=== PATIENT | male | born 1945 | race Caucasian/White ===

== ENCOUNTER → 2016-08-04 | Outpatient (REF) | payer MEDICARE, OTHER ==
[2016-08-04 12:19] LABS: BASO % 1.5 % (0.0-1.0); EOS # 0.1 K/mm3 (0.0-0.50); EOS % 6.2 % (0.0-3.0); LARGE UNSTAINED CELL % 1.5 % (0.0-4.0); LYMPH # 1.1 K/mm3 (1.5-4.5); LYMPH % 51.8 % (24.0-44.0); MEAN CORPUSCULAR HEMOGLOBIN 31.1 pg (27.0-33.0); MEAN CORPUSCULAR HGB CONC 33.3 g/dl (32.0-36.5); MEAN CORPUSCULAR VOLUME 93.6 fl (80.0-96.0); MONO # 0.1 K/mm3 (0.0-0.8); MONO % 2.7 % (0.0-5.0); NEUTROPHILS # 0.8 K/mm3 (1.8-7.7); NEUTROPHILS % 36.2 % (36.0-66.0); PLATELET COUNT, AUTOMATED 139 k/mm3 (150-450); RED CELL DISTRIBUTION WIDTH 14.1 % (11.5-14.5); WHITE BLOOD COUNT 2.1 K/mm3 (4.0-10.0)
[2016-08-04 12:27] LABS: ALBUMIN 3.7 GM/DL (3.2-5.2); ALBUMIN/GLOBULIN RATIO 1.48 (1.00-1.93); BILIRUBIN,TOTAL 0.5 MG/DL (0.2-1.0); CALCIUM LEVEL 8.1 MG/DL (8.8-10.2); CREATININE FOR GFR 1.42 MG/DL (0.70-1.30); GLOMERULAR FILTRATION RATE 52.2 (>42); MAGNESIUM LEVEL 2.1 MG/DL (1.8-2.4); TOTAL PROTEIN 6.2 GM/DL (6.4-8.2)
== END ==
LOC: M SFHCPLAZ 08:20
PROVIDERS: ATTEND Family Medicine
DX: N18.3 Chronic kidney disease, stage 3 (moderate) (principal); E78.5 Hyperlipidemia, unspecified

== ENCOUNTER → 2016-09-23 | Outpatient (REF) | payer MEDICARE, BC, OTHER | LOC: M SFHCPLAZ 11:44 | PROVIDERS: ATTEND Family Medicine | DX: D23.61 Other benign neoplasm of skin of right upper limb, including shoulder (principal) | CPT/HCPCS: 11100; 88305; G0463 ==

== ENCOUNTER → 2017-01-31 | Outpatient (REF) | payer MEDICARE, OTHER ==
[2017-01-31 13:00] LABS: ALBUMIN 3.8 GM/DL (3.2-5.2); ALBUMIN/GLOBULIN RATIO 1.52 (1.00-1.93); ALKALINE PHOSPHATASE 51 U/L (45-117); ALT/SGPT 26 U/L (12-78); ANION GAP 6 MEQ/L (8-16); AST/SGOT 18 U/L (7-37); BILIRUBIN,TOTAL 0.3 MG/DL (0.2-1.0); BLOOD UREA NITROGEN 15 MG/DL (7-18); CALCIUM LEVEL 8.6 MG/DL (8.8-10.2); CARBON DIOXIDE LEVEL 31 MEQ/L (21-32); CHLORIDE LEVEL 106 MEQ/L (98-107); CHOLESTEROL LEVEL 147 MG/DL (<200); CREATININE FOR GFR 1.24 MG/DL (0.70-1.30); GLOMERULAR FILTRATION RATE > 60.0 (>42); GLUCOSE, FASTING 97 MG/DL (83-110); POTASSIUM SERUM 4.2 MEQ/L (3.5-5.1); SODIUM LEVEL 143 MEQ/L (136-145); TOTAL PROTEIN 6.3 GM/DL (6.4-8.2); TRIGLYCERIDES LEVEL 90 MG/DL (<150)
== END ==
LOC: M SFHCPLAZ 08:11
PROVIDERS: ATTEND Family Medicine
DX: E78.5 Hyperlipidemia, unspecified (principal); R73.01 Impaired fasting glucose; N40.1 Benign prostatic hyperplasia with lower urinary tract symptoms; E55.9 Vitamin D deficiency, unspecified; N18.3 Chronic kidney disease, stage 3 (moderate); Z12.5 Encounter for screening for malignant neoplasm of prostate
CPT/HCPCS: 36415; 80053; 80061; 81001; 82043; 82306; 82550; 83036; 83970; 86140; G0103

== ENCOUNTER 2017-06-08 09:13 | Day surgery (SDC) | payer MEDICARE, BC, OTHER ==
[2017-06-08] MEDS: NS 1,000 ML IV (09:49)
[2017-06-08] MEDS ORDERED: LIDOCAINE 2% INJ 100 MG/5 ML SDV (FOR ANES.) As Ordered (10:06)
[2017-06-08] MEDS ORDERED: PROPOFOL 200 MG/20 ML VIAL As Ordered (10:06)
[2017-06-08] MEDS ORDERED: fentaNYL 100 MCG/2 ML INJECTION (J3010) As Ordered (10:08)
== END 2017-06-08 11:12 | disposition home or self-care (01) ==
LOC: M OPP 09:13
DX: R13.10 Dysphagia, unspecified (principal); R93.8 Abnormal findings on diagnostic imaging of other specified body structures; K29.70 Gastritis, unspecified, without bleeding; K29.80 Duodenitis without bleeding; K22.8 Other specified diseases of esophagus; I12.9 Hypertensive chronic kidney disease with stage 1 through stage 4 chronic kidney disease, or unspecified chronic kidney disease; E78.5 Hyperlipidemia, unspecified; K21.9 Gastro-esophageal reflux disease without esophagitis; R12 Heartburn; D64.9 Anemia, unspecified; C83.10 Mantle cell lymphoma, unspecified site; Z85.6 Personal history of leukemia; M19.90 Unspecified osteoarthritis, unspecified site; L71.9 Rosacea, unspecified; G47.30 Sleep apnea, unspecified; N18.3 Chronic kidney disease, stage 3 (moderate); H40.9 Unspecified glaucoma; N40.1 Benign prostatic hyperplasia with lower urinary tract symptoms; Z87.891 Personal history of nicotine dependence; Z88.0 Allergy status to penicillin; Z79.82 Long term (current) use of aspirin; Z79.899 Other long term (current) drug therapy; Z80.3 Family history of malignant neoplasm of breast; Z80.8 Family history of malignant neoplasm of other organs or systems
CPT/HCPCS: 43239

== ENCOUNTER → 2017-11-28 | Outpatient (REF) | payer MEDICARE, OTHER ==
[2017-11-28 11:08] LABS: HEMATOCRIT 37.3 % (42.0-52.0); HEMOGLOBIN 12.4 g/dl (13.5-17.5); MEAN CORPUSCULAR HEMOGLOBIN 30.6 pg (27.0-33.0); MEAN CORPUSCULAR HGB CONC 33.2 g/dl (32.0-36.5); MEAN CORPUSCULAR VOLUME 92.1 fl (80.0-96.0); PLATELET COUNT, AUTOMATED 189 10^3/uL (150-450); RED BLOOD COUNT 4.05 10^6/uL (4.30-6.10); RED CELL DISTRIBUTION WIDTH 14.4 % (11.5-14.5); WHITE BLOOD COUNT 3.6 10^3/uL (4.0-10.0)
[2017-11-28 11:09] LABS: ADD MANUAL DIFFER YES; DIFF SLIDE NUMBER 191; POSITIVE DIFF POS FLAG
[2017-11-28 11:43] LABS: ALBUMIN 3.8 GM/DL (3.2-5.2); ALKALINE PHOSPHATASE 50 U/L (45-117); ALT/SGPT 23 U/L (12-78); ANION GAP 4 MEQ/L (8-16); AST/SGOT 12 U/L (7-37); BILIRUBIN,TOTAL 0.4 MG/DL (0.2-1.0); BLOOD UREA NITROGEN 15 MG/DL (7-18); C REACTIVE PROTEIN QUANTITATIV < 0.30 MG/DL (0.00-0.30); CALCIUM LEVEL 8.6 MG/DL (8.8-10.2); CARBON DIOXIDE LEVEL 32 MEQ/L (21-32); CHLORIDE LEVEL 106 MEQ/L (98-107); CHOLESTEROL LEVEL 179 MG/DL (<200); CHOLESTEROL RISK RATIO 2.796 (<5); CPK CREATINE PHOSPHOKINASE 64 U/L (39-308); CREATININE FOR GFR 1.29 MG/DL (0.70-1.30); GLOMERULAR FILTRATION RATE 58.1 (>42); GLUCOSE, FASTING 88 MG/DL (70-100); HDL CHOLESTEROL 64 MG/DL (>40); LDL CHOLESTEROL 75 MG/DL (<100); MAGNESIUM LEVEL 2.4 MG/DL (1.8-2.4); NON-HDL-C 115 MG/DL; POTASSIUM SERUM 4.5 MEQ/L (3.5-5.1); PTH INTACT 35.5 PG/ML (18.5-88.0); SODIUM LEVEL 142 MEQ/L (136-145); TOTAL 25(OH) VITAMIN D 39.1 NG/ML (30.0-100.0); TOTAL PROTEIN 6.2 GM/DL (6.4-8.2); TRIGLYCERIDES LEVEL 202 MG/DL (<150)
[2017-11-28 11:44] LABS: ESTIMATED AVERAGE GLUCOSE 123 MG/DL (60-110); HEMOGLOBIN A1c 5.9 %
[2017-11-28 11:49] LABS: ATYPICAL LYMPH 1 % (0-5); BANDS 1 % (< 11); BASOPHILS 2 % (0-4); EOSINOPHILS 7 % (0-5); LYMPHOCYTES 2 % (16-52); MONOCYTES 3 % (0-8); NEUTROPHILS 84 % (35-75)
[2017-11-28 11:50] LABS: PLATELET ESTIMATE NORMAL (NORMAL)
[2017-11-28 13:01] LABS: ALBUMIN/GLOBULIN RATIO 1.58 (1.00-1.93)
[2017-11-28 14:24] LABS: APPEARANCE, URINE CLEAR (CLEAR); BACTERIA, URINE AUTO NEGATIVE (NEGATIVE); BILIRUBIN, URINE AUTO NEGATIVE (NEGATIVE); BLOOD, URINE BLOOD NEGATIVE (NEGATIVE); COLOR, URINE YELLOW (YELLOW); GLUCOSE, URINE (UA) AUTO NEGATIVE (NEGATIVE); KETONE, URINE AUTO NEGATIVE (NEGATIVE); LEUKOCYTE ESTERASE, URINE AUTO NEGATIVE (NEGATIVE); MUCUS, URINE SMALL (NEGATIVE); NITRITE, URINE AUTO NEGATIVE (NEGATIVE); PROTEIN, URINE AUTO NEGATIVE (NEGATIVE); RBC, URINE AUTO 1 /HPF (0-3); SPECIFIC GRAVITY URINE AUTO 1.012 (1.002-1.035); SQUAMOUS EPITHELIAL CELL UR AU 0 /HPF (0-6); UROBILINOGEN, URINE AUTO 0.2 mg/dL (0.0-2.0); WBC, URINE AUTO 1 /HPF (0-3)
[2017-11-28 15:14] LABS: MALB URINE SIEMENS 17.9 MG/L
[2017-11-28 20:35] LABS: MAU/CREAT RATIO 15.2 MCG/MG (0.0-30.0)
[2017-11-29 14:18] LABS: H PYLORI SERUM QUANT IgG ABY 0.16 (0.00-0.79)
[2017-11-29 14:18] LABS: INSULIN LEVEL 11.4 uIU/mL (2.6-24.9)
== END ==
LOC: M SFHCPLAZ 09:10
DX: N18.3 Chronic kidney disease, stage 3 (moderate) (principal); E78.5 Hyperlipidemia, unspecified; E55.9 Vitamin D deficiency, unspecified; R73.01 Impaired fasting glucose
CPT/HCPCS: 82550

== ENCOUNTER → 2018-05-10 | Outpatient (REF) | payer MEDICARE, OTHER ==
[~2018-05-10] MED LIST: ASPI81TA85 PO; MOTR200T44 PO; MULT1TAB10 PO; PANT40TA3 PO; TAMSULOSIN PO; TRAV04OPD OU; TUMS500C PO; TYLE325T5 PO; VENL75CA2 PO; VITA-122 PO; VYTO10TA22 PO
[2018-05-10 09:33] LABS: BASO # 0.1 10^3/uL (0.0-0.2); BASO % 1.8 % (0.0-1.0); EOS # 0.2 10^3/uL (0.0-0.50); EOS % 6.2 % (0.0-3.0); HEMATOCRIT 37.3 % (42.0-52.0); HEMOGLOBIN 12.2 g/dl (13.5-17.5); LYMPH # 0.3 10^3/uL (1.5-4.5); LYMPH % 10.2 % (24.0-44.0); MEAN CORPUSCULAR HGB CONC 32.7 g/dl (32.0-36.5); MEAN CORPUSCULAR VOLUME 91.9 fl (80.0-96.0); MONO # 0.4 10^3/uL (0.0-0.8); MONO % 14.6 % (0.0-5.0); NEUTROPHILS # 1.8 10^3/uL (1.8-7.7); NEUTROPHILS % 66.8 % (36.0-66.0); PLATELET COUNT, AUTOMATED 175 10^3/uL (150-450); RED BLOOD COUNT 4.06 10^6/uL (4.30-6.10); WHITE BLOOD COUNT 2.7 10^3/uL (4.0-10.0)
[2018-05-10 10:10] LABS: ALBUMIN 3.7 GM/DL (3.2-5.2); BILIRUBIN,TOTAL 0.3 MG/DL (0.2-1.0); CALCIUM LEVEL 8.6 MG/DL (8.8-10.2); CREATININE FOR GFR 1.35 MG/DL (0.70-1.30); FREE T4 0.77 NG/DL (0.76-1.46); GLOMERULAR FILTRATION RATE 55.2 (>42); POTASSIUM SERUM 4.4 MEQ/L (3.5-5.1); PROSTATIC SPECIFIC AG MONITOR 2.4 NG/ML (< 4.00); THYROID STIMULATING HORMONE 2.24 uIU/ML (0.358-3.740); TOTAL PROTEIN 6.2 GM/DL (6.4-8.2)
== END ==
LOC: M SFHCPLAZ 08:02
PROVIDERS: ATTEND Family Medicine
DX: C91.40 Hairy cell leukemia not having achieved remission (principal); N18.3 Chronic kidney disease, stage 3 (moderate); E78.5 Hyperlipidemia, unspecified; R73.01 Impaired fasting glucose; N40.1 Benign prostatic hyperplasia with lower urinary tract symptoms

== ENCOUNTER → 2018-10-25 | Outpatient (REF) | payer MEDICARE, OTHER ==
[2018-10-25 13:26] LABS: BASO % 1.3 % (0.0-1.0); EOS # 0.4 10^3/uL (0.0-0.50); EOS % 11.3 % (0.0-3.0); HEMATOCRIT 39.2 % (42.0-52.0); HEMOGLOBIN 13.1 g/dl (13.5-17.5); LYMPH # 0.3 10^3/uL (1.5-4.5); LYMPH % 9.7 % (24.0-44.0); MEAN CORPUSCULAR HEMOGLOBIN 30.9 pg (27.0-33.0); MEAN CORPUSCULAR HGB CONC 33.4 g/dl (32.0-36.5); MEAN CORPUSCULAR VOLUME 92.5 fl (80.0-96.0); MONO # 0.4 10^3/uL (0.0-0.8); MONO % 10.9 % (0.0-5.0); NEUTROPHILS # 2.1 10^3/uL (1.8-7.7); NEUTROPHILS % 66.5 % (36.0-66.0); PLATELET COUNT, AUTOMATED 201 10^3/uL (150-450); RED BLOOD COUNT 4.24 10^6/uL (4.30-6.10); WHITE BLOOD COUNT 3.2 10^3/uL (4.0-10.0)
[2018-10-25 13:29] LABS: BILIRUBIN,TOTAL 0.4 MG/DL (0.2-1.0); CALCIUM LEVEL 9.1 MG/DL (8.8-10.2); CREATININE FOR GFR 1.32 MG/DL (0.70-1.30); GLOMERULAR FILTRATION RATE 56.4 (>42); POTASSIUM SERUM 4.2 MEQ/L (3.5-5.1); TOTAL PROTEIN 6.6 GM/DL (6.4-8.2)
[2018-10-25 13:38] LABS: PTH INTACT 40.7 PG/ML (18.5-88.0); TOTAL 25(OH) VITAMIN D 45.1 NG/ML (30.0-100.0)
[2018-10-25 14:12] LABS: HEMOGLOBIN A1c 5.9 %
== END ==
LOC: M SFHCPLAZ 08:53
PROVIDERS: ATTEND Family Medicine
DX: C83.10 Mantle cell lymphoma, unspecified site (principal); N18.3 Chronic kidney disease, stage 3 (moderate); R73.01 Impaired fasting glucose; E55.9 Vitamin D deficiency, unspecified

== ENCOUNTER → 2019-03-29 | Outpatient (CLI) | payer MEDICARE, OTHER ==
[2019-03-29 10:25] LABS: BASO # 0.1 10^3/uL (0.0-0.2); BASO % 2.1 % (0.0-1.0); EOS # 0.2 10^3/uL (0.0-0.5); EOS % 5.8 % (0.0-3.0); HEMATOCRIT 43.9 % (42.0-52.0); HEMOGLOBIN 13.7 g/dl (13.5-17.5); LYMPH # 0.5 10^3/uL (1.5-5.0); LYMPH % 15.2 % (24.0-44.0); MEAN CORPUSCULAR HEMOGLOBIN 28.7 pg (27.0-33.0); MEAN CORPUSCULAR HGB CONC 31.2 g/dl (32.0-36.5); MONO # 0.4 10^3/uL (0.0-0.8); MONO % 11.6 % (0.0-5.0); NEUTROPHILS # 2.2 10^3/uL (1.5-8.5); NEUTROPHILS % 65.3 % (36.0-66.0); PLATELET COUNT, AUTOMATED 223 10^3/uL (150-450); RED BLOOD COUNT 4.77 10^6/uL (4.30-6.10); WHITE BLOOD COUNT 3.3 10^3/uL (4.0-10.0)
[2019-03-29 10:56] LABS: ALBUMIN 4.2 GM/DL (3.2-5.2); ALT/SGPT 32 U/L (12-78); BILIRUBIN,TOTAL 0.6 MG/DL (0.2-1.0); BLOOD UREA NITROGEN 15 MG/DL (7-18); C REACTIVE PROTEIN QUANTITATIV < 0.30 MG/DL (0.00-0.30); CALCIUM LEVEL 9.2 MG/DL (8.8-10.2); CARBON DIOXIDE LEVEL 29 MEQ/L (21-32); CHLORIDE LEVEL 105 MEQ/L (98-107); CHOLESTEROL LEVEL 166 MG/DL (<200); CHOLESTEROL RISK RATIO 2.634 (<5); CPK CREATINE PHOSPHOKINASE 293 U/L (39-308); CREATININE FOR GFR 1.59 MG/DL (0.70-1.30); GLOMERULAR FILTRATION RATE 45.5 (>42); GLUCOSE, FASTING 99 MG/DL (70-100); HDL CHOLESTEROL 63 MG/DL (>40); LDL CHOLESTEROL 83 MG/DL (<100); NON-HDL-C 103 MG/DL; POTASSIUM SERUM 4.5 MEQ/L (3.5-5.1); SODIUM LEVEL 142 MEQ/L (136-145); TOTAL PROTEIN 6.8 GM/DL (6.4-8.2); TRIGLYCERIDES LEVEL 99 MG/DL (<150)
[2019-03-29 10:57] LABS: HEMOGLOBIN A1c 5.9 %
[2019-03-29 14:07] LABS: APPEARANCE, URINE CLEAR (CLEAR); BACTERIA, URINE AUTO NEGATIVE (NEGATIVE); BILIRUBIN, URINE AUTO NEGATIVE (NEGATIVE); BLOOD, URINE BLOOD NEGATIVE (NEGATIVE); COLOR, URINE YELLOW (YELLOW); GLUCOSE, URINE (UA) AUTO NEGATIVE (NEGATIVE); KETONE, URINE AUTO NEGATIVE (NEGATIVE); LEUKOCYTE ESTERASE, URINE AUTO NEGATIVE (NEGATIVE); NITRITE, URINE AUTO NEGATIVE (NEGATIVE); PROTEIN, URINE AUTO NEGATIVE (NEGATIVE); RBC, URINE AUTO 0 /HPF (0-3); SPECIFIC GRAVITY URINE AUTO 1.006 (1.002-1.035); SQUAMOUS EPITHELIAL CELL UR AU 0 /HPF (0-6); UROBILINOGEN, URINE AUTO 0.2 mg/dL (0.0-2.0); WBC, URINE AUTO 1 /HPF (0-3)
[2019-03-29 14:46] LABS: CREATININE, URINE 78.8 MG/DL; MALB URINE SIEMENS 36.4 MG/L; MAU/CREAT RATIO 46.1 MCG/MG (0.0-30.0)
== END ==
LOC: M PLALAB 07:54
PROVIDERS: ATTEND Family Medicine
DX: C83.10 Mantle cell lymphoma, unspecified site (principal); E78.5 Hyperlipidemia, unspecified; R73.01 Impaired fasting glucose; Z12.5 Encounter for screening for malignant neoplasm of prostate
CPT/HCPCS: 36415; 80053; 80061; 81001; 82043; 82550; 83036; 85025; 86140; G0103

== ENCOUNTER → 2019-08-07 | Outpatient (REF) | payer MEDICARE, OTHER ==
[2019-08-07 10:48] LABS: ALBUMIN 3.7 GM/DL (3.2-5.2); BILIRUBIN,TOTAL 0.5 MG/DL (0.2-1.0); CALCIUM LEVEL 8.4 MG/DL (8.8-10.2); CREATININE FOR GFR 1.3 MG/DL (0.70-1.30); GLOMERULAR FILTRATION RATE 57.3 (>42); POTASSIUM SERUM 4.6 MEQ/L (3.5-5.1); TOTAL PROTEIN 6.2 GM/DL (6.4-8.2)
[2019-08-07 10:51] LABS: PTH INTACT 50.2 PG/ML (18.5-88.0); TOTAL 25(OH) VITAMIN D 49.1 NG/ML (30.0-100.0)
[2019-08-07 11:03] LABS: TOTAL PROTEIN,RANDOM URINE 16.4 MG/DL (0.0-12.0)
[2019-08-07 11:43] LABS: HEMOGLOBIN A1c 5.6 %
== END ==
LOC: M PLALAB 08:32
PROVIDERS: ATTEND Family Medicine
DX: N18.3 Chronic kidney disease, stage 3 (moderate) (principal); R73.01 Impaired fasting glucose; E55.9 Vitamin D deficiency, unspecified

== ENCOUNTER → 2020-02-10 | Outpatient (REF) | payer MEDICARE, OTHER ==
[~2020-02-10] MED LIST changes: -ASPI81TA85 PO; +ASPI81TA86 PO; +PANT40TA29 PO; -PANT40TA3 PO
[2020-02-10 10:42] LABS: BASO # 0.1 10^3/uL (0.0-0.2); BASO % 2.1 % (0.0-1.0); EOS # 0.3 10^3/uL (0.0-0.5); EOS % 8.3 % (0.0-3.0); HEMATOCRIT 41.6 % (42.0-52.0); HEMOGLOBIN 13.4 g/dl (13.5-17.5); LYMPH # 0.8 10^3/uL (1.5-5.0); LYMPH % 21.8 % (24.0-44.0); MEAN CORPUSCULAR HEMOGLOBIN 29.5 pg (27.0-33.0); MEAN CORPUSCULAR HGB CONC 32.2 g/dl (32.0-36.5); MEAN CORPUSCULAR VOLUME 91.4 fl (80.0-96.0); MONO # 0.4 10^3/uL (0.0-0.8); MONO % 9.6 % (0.0-5.0); NEUTROPHILS # 2.2 10^3/uL (1.5-8.5); NEUTROPHILS % 57.9 % (36.0-66.0); PLATELET COUNT, AUTOMATED 227 10^3/uL (150-450); RED BLOOD COUNT 4.55 10^6/uL (4.30-6.10); WHITE BLOOD COUNT 3.9 10^3/uL (4.0-10.0)
[2020-02-10 12:01] LABS: ALBUMIN 3.8 GM/DL (3.2-5.2); BILIRUBIN,TOTAL 0.2 MG/DL (0.2-1.0); CALCIUM LEVEL 8.8 MG/DL (8.8-10.2); CHOLESTEROL RISK RATIO 2.707 (<5); CREATININE FOR GFR 1.42 MG/DL (0.70-1.30); FREE T4 0.67 NG/DL (0.76-1.46); GLOMERULAR FILTRATION RATE 51.7 (>42); POTASSIUM SERUM 4.6 MEQ/L (3.5-5.1); THYROID STIMULATING HORMONE 5.08 uIU/ML (0.358-3.740); TOTAL PROTEIN 6.5 GM/DL (6.4-8.2)
== END ==
LOC: M PLALAB 08:19
PROVIDERS: ATTEND Family Medicine
DX: N18.30 Chronic kidney disease, stage 3 unspecified (principal); G47.61 Periodic limb movement disorder; E78.5 Hyperlipidemia, unspecified; R73.01 Impaired fasting glucose; Z12.5 Encounter for screening for malignant neoplasm of prostate
CPT/HCPCS: 36415; 80053; 80061; 83525; 84439; 84443; 85025; 85046; G0103

== ENCOUNTER → 2020-07-09 | Outpatient (CLI) | payer MEDICARE, OTHER ==
--- NOTE | 2020-07-09 15:23 | REPPI ---
INDICATION: R13.10 ODYNOPHAGIA. COMPARISON: Comparison chest x-ray June 21, 2011. TECHNIQUE: Three views... FINDINGS: The lungs are hyperinflated but clear. Pleural angles are sharp. Heart is not enlarged. There are degenerative changes in the thoracic spine. Pulmonary vasculature is not increased. There is no significant bony abnormality. IMPRESSION: No active disease. Mild hyperinflation.. <Electronically signed by Nate Cabral > 07/09/20 [id number]
== END ==
LOC: M PLAIMG 14:30 → M PLALAB 14:30
PROVIDERS: ATTEND Family Medicine
DX: M51.34 Other intervertebral disc degeneration, thoracic region (principal); R13.10 Dysphagia, unspecified
CPT/HCPCS: 71046; G0463

== ENCOUNTER → 2020-07-10 | Outpatient (REF) | payer MEDICARE, OTHER ==
[2020-07-10 10:12] LABS: BASO # 0.1 10^3/uL (0.0-0.2); BASO % 2.2 % (0.0-1.0); EOS # 0.3 10^3/uL (0.0-0.5); EOS % 7.3 % (0.0-3.0); HEMOGLOBIN 13.3 g/dl (13.5-17.5); LYMPH # 0.8 10^3/uL (1.5-5.0); LYMPH % 21.4 % (24.0-44.0); MEAN CORPUSCULAR HEMOGLOBIN 29.2 pg (27.0-33.0); MEAN CORPUSCULAR HGB CONC 31.7 g/dl (32.0-36.5); MEAN CORPUSCULAR VOLUME 92.1 fl (80.0-96.0); MONO # 0.4 10^3/uL (0.0-0.8); MONO % 9.7 % (2.0-8.0); NEUTROPHILS # 2.2 10^3/uL (1.5-8.5); NEUTROPHILS % 59.1 % (36.0-66.0); PLATELET COUNT, AUTOMATED 217 10^3/uL (150-450); RED BLOOD COUNT 4.56 10^6/uL (4.30-6.10); WHITE BLOOD COUNT 3.7 10^3/uL (4.0-10.0)
[2020-07-10 10:51] LABS: ALBUMIN 3.9 GM/DL (3.2-5.2); ALT/SGPT 36 U/L (12-78); BILIRUBIN,TOTAL 0.4 MG/DL (0.2-1.0); BLOOD UREA NITROGEN 16 MG/DL (7-18); CALCIUM LEVEL 9.4 MG/DL (8.8-10.2); CARBON DIOXIDE LEVEL 32 MEQ/L (21-32); CHLORIDE LEVEL 104 MEQ/L (98-107); CREATININE FOR GFR 1.22 MG/DL (0.70-1.30); FERRITIN 64 NG/ML (26-388); FREE T4 0.66 NG/DL (0.76-1.46); GLOMERULAR FILTRATION RATE > 60.0 (>42); GLUCOSE, FASTING 102 MG/DL (70-100); POTASSIUM SERUM 4.8 MEQ/L (3.5-5.1); SODIUM LEVEL 139 MEQ/L (136-145); THYROID PEROXIDASE ANTIBODY 433.8 U/ML (<60.0); TOTAL 25(OH) VITAMIN D 40.6 NG/ML (30.0-100.0); TOTAL PROTEIN 6.5 GM/DL (6.4-8.2)
[2020-07-10 11:09] LABS: HEMOGLOBIN A1c 5.7 %
[2020-07-13 18:07] LABS: INSULIN LEVEL 9.1 uIU/mL (2.6-24.9)
== END ==
LOC: M SFHCPLAZ 08:04
PROVIDERS: ATTEND Family Medicine
DX: E78.5 Hyperlipidemia, unspecified (principal); R73.01 Impaired fasting glucose; N18.30 Chronic kidney disease, stage 3 unspecified; C83.10 Mantle cell lymphoma, unspecified site; G47.61 Periodic limb movement disorder
CPT/HCPCS: 36415; 80053; 82306; 82728; 83036; 83525; 83625; 83970; 84439; 84443; 85025; 86376; G0103

== ENCOUNTER → 2020-10-13 | Outpatient (CLI) | payer MEDICARE, BC, OTHER ==
--- NOTE | 2020-10-14 10:31 | REP ---
INDICATION: COUGH. COMPARISON: NONE TECHNIQUE: The procedure was performed under the direct supervision of . The procedure was performed with Polly Samuel from speech pathology present. 5 CC aliquots of thin, nectar, pudding, mixed fruit, soft and solid consistency barium was administered. A barium pill was also administered. 1.7 minutes of fluoroscopy time was utilized for this procedure. FINDINGS: With thin, nectar and mixed fruit consistency barium there is laryngeal penetration. With the barium pill, the pill advanced to the top of the epiglottis and then bounced into the laryngeal opening onto the false cords and then bounced back out into the esophagus. IMPRESSION: None RECOMMENDATION: A detailed report of this examination will be provided by speech pathology. IMPRESSION: With thin, nectar and mixed fruit consistency barium there is laryngeal penetration. With the barium pill, the pill advanced to the top of the epiglottis and then bounced into the laryngeal opening onto the false cords and then bounced back out into the esophagus. A detailed report of this examination will be provided by speech pathology. <Electronically signed by Erik Ly > 10/13/20 [id number] <Electronically signed by Nate Cabral > 10/14/20 1027
== END ==
LOC: M ST 13:39
PROVIDERS: ATTEND Physician Assistant Medical
DX: R05 Cough (principal)

== ENCOUNTER 2020-12-07 10:45 | Outpatient (RCR) | payer MEDICARE, BC, OTHER | END 2020-12-17 | LOC: M ST 10:45 | PROVIDERS: ATTEND Physician Assistant Medical | DX: R13.13 Dysphagia, pharyngeal phase (principal) ==

== ENCOUNTER → 2020-12-10 | Outpatient (CLI) | payer MEDICARE, BC, OTHER ==
[2020-12-10 10:50] LABS: HEMOGLOBIN A1c 6.2 %
[2020-12-10 10:51] LABS: HEMATOCRIT 37.5 % (42.0-52.0); HEMOGLOBIN 11.8 g/dl (13.5-17.5); MEAN CORPUSCULAR HEMOGLOBIN 27.9 pg (27.0-33.0); MEAN CORPUSCULAR HGB CONC 31.5 g/dl (32.0-36.5); MEAN CORPUSCULAR VOLUME 88.7 fl (80.0-96.0); PLATELET COUNT, AUTOMATED 107 10^3/uL (150-450); RED BLOOD COUNT 4.23 10^6/uL (4.30-6.10); WHITE BLOOD COUNT 24.1 10^3/uL (4.0-10.0)
[2020-12-10 11:15] LABS: ALBUMIN 3.6 GM/DL (3.2-5.2); BILIRUBIN,TOTAL 0.3 MG/DL (0.2-1.0); C REACTIVE PROTEIN QUANTITATIV 3.91 MG/DL (0.00-0.30); CALCIUM LEVEL 8.9 MG/DL (8.8-10.2); CHOLESTEROL RISK RATIO 4.562 (<5); CREATININE FOR GFR 1.34 MG/DL (0.70-1.30); FREE T4 0.93 NG/DL (0.76-1.46); GLOMERULAR FILTRATION RATE 55.2 (>42); POTASSIUM SERUM 4.5 MEQ/L (3.5-5.1); THYROID STIMULATING HORMONE 3.87 uIU/ML (0.358-3.740); TOTAL PROTEIN 6.5 GM/DL (6.4-8.2)
[2020-12-10 12:16] LABS: EOSINOPHILS 3 % (0-3); LYMPHOCYTES 13 % (16-44); METAMYELOCYTES 3 % (0-0); MONOCYTES 3 % (0-5); MYELOCYTES 2 % (0-0); NEUTROPHILS 20 % (28-66)
[2020-12-10 12:23] LABS: ATYPICAL LYMPH 1 % (0-5)
[2020-12-10 12:24] LABS: PLATELET ESTIMATE DECREASED (NORMAL)
[2020-12-10 12:25] LABS: ANISOCYTOSIS 1+; POIKILOCYTOSIS 1+
[2020-12-10 12:38] LABS: BLAST CELLS 52 % (0-0)
[2020-12-12 00:07] LABS: INSULIN LEVEL 9.3 uIU/mL (2.6-24.9)
== END ==
LOC: M PLALAB 07:50
PROVIDERS: ATTEND Family Medicine
DX: C83.10 Mantle cell lymphoma, unspecified site (principal); G47.61 Periodic limb movement disorder; R73.01 Impaired fasting glucose; N18.30 Chronic kidney disease, stage 3 unspecified; R13.10 Dysphagia, unspecified

== ENCOUNTER → 2020-12-11 | Outpatient (CLI) | payer MEDICARE, BC, OTHER ==
[2020-12-11 13:08] LABS: HEMATOCRIT 35.8 % (42.0-52.0); HEMOGLOBIN 11.4 g/dl (13.5-17.5); MEAN CORPUSCULAR HEMOGLOBIN 28.1 pg (27.0-33.0); MEAN CORPUSCULAR HGB CONC 31.8 g/dl (32.0-36.5); MEAN CORPUSCULAR VOLUME 88.4 fl (80.0-96.0); PLATELET COUNT, AUTOMATED 101 10^3/uL (150-450); RED BLOOD COUNT 4.05 10^6/uL (4.30-6.10); WHITE BLOOD COUNT 24.8 10^3/uL (4.0-10.0)
[2020-12-11 13:37] LABS: ATYPICAL LYMPH 5 % (0-5); BLAST CELLS 43 % (0-0); EOSINOPHILS 1 % (0-3); LYMPHOCYTES 5 % (16-44); MONOCYTES 30 % (0-5); NEUTROPHILS 15 % (28-66)
[2020-12-11 13:38] LABS: PLATELET ESTIMATE DECREASED (NORMAL)
[2020-12-11 13:39] LABS: HYPOCHROMASIA 1+
[2020-12-11 13:51] LABS: ALBUMIN 3.4 GM/DL (3.2-5.2); BILIRUBIN,TOTAL 0.3 MG/DL (0.2-1.0); C REACTIVE PROTEIN QUANTITATIV 4.03 MG/DL (0.00-0.30); CALCIUM LEVEL 8.9 MG/DL (8.8-10.2); CHOLESTEROL RISK RATIO 4.516 (<5); CREATININE FOR GFR 1.39 MG/DL (0.70-1.30); FREE T4 0.92 NG/DL (0.76-1.46); GLOMERULAR FILTRATION RATE 52.9 (>42); POTASSIUM SERUM 4.4 MEQ/L (3.5-5.1); PTH INTACT 38.4 PG/ML (18.5-88.0); THYROID PEROXIDASE ANTIBODY 497.9 U/ML (<60.0); THYROID STIMULATING HORMONE 4.76 uIU/ML (0.358-3.740); TOTAL 25(OH) VITAMIN D 51.8 NG/ML (30.0-100.0); TOTAL PROTEIN 6.1 GM/DL (6.4-8.2)
[2020-12-11 13:58] LABS: HEMOGLOBIN A1c 6.2 %
[2020-12-14 21:07] LABS: INSULIN LEVEL 18.8 uIU/mL (2.6-24.9)
== END ==
LOC: M PLALAB 09:49
PROVIDERS: ATTEND Family Medicine
DX: C83.10 Mantle cell lymphoma, unspecified site (principal); G47.31 Primary central sleep apnea; R73.01 Impaired fasting glucose; N18.30 Chronic kidney disease, stage 3 unspecified
CPT/HCPCS: 36415; 80053; 80061; 82306; 82550; 82728; 83036; 83525; 83625; 83970; 84439; 84443; 85025; 86140; 86376; G0103

== ENCOUNTER → 2021-02-03 | Outpatient (CLI) | payer MEDICARE, BC, OTHER ==
[~2021-02-03] MED LIST changes: +PROHANCE 279.3MG/ML 5ML VIAL As Ordered ONE
--- NOTE | 2021-02-03 17:40 | REPVR ---
PROCEDURE INFORMATION: Exam: MR Head Without and With Contrast Exam date and time: 02/03/2021 2:47 PM Age: 75 years old Clinical indication: Condition or disease; Other: Mantle cell lymphoma, slurred speech, R/O HOEING ROW BOSS lymp TECHNIQUE: Imaging protocol: MR of the head without and with intravenous contrast. Contrast material: PROHANCE; Contrast volume: 13 ml; Contrast route: INTRAVENOUS (IV); COMPARISON: XA Cookie Swallow Mod.Ba Swallow 10/13/2020 1:43 PM FINDINGS: Brain: Mild nonspecific T2/FLAIR hyperintensities of the periventricular and deep subcortical white matter, most likely secondary to chronic small vessel ischemic change. No intracranial hemorrhage or extra-axial fluid collection. No evidence of mass effect or midline shift. No restricted diffusion to suggest acute infarct. No abnormal intracranial enhancement. Cerebral ventricles: Mild generalized prominence of the ventricles and sulci, likely attributed to parenchymal volume loss. Bones/joints: Unremarkable. Paranasal sinuses: Normal as visualized. No acute sinusitis. Mastoid air cells: No mastoid effusion. Orbital cavity: Unremarkable. Soft tissues: Unremarkable. IMPRESSION: 1. No acute intracranial pathology. No evidence of metastatic disease to the brain. 2. Chronic findings, as above. Electronically signed by: Cash Barger On 02/03/2021 17:40:29 PM
== END ==
LOC: M RAD 13:24
PROVIDERS: ATTEND Internal Medicine Hematology & Oncology
DX: C83.10 Mantle cell lymphoma, unspecified site (principal); C91.41 Hairy cell leukemia, in remission
CPT/HCPCS: 70553; A9576

== ENCOUNTER → 2021-02-19 | Outpatient (CLI) | payer MEDICARE, BC, OTHER ==
[~2021-02-19] MED LIST changes: +ACET-897 PO; +BACTDSTA PO; +CALQ100C PO; +D31000TA2 PO; +ECOT81TA5 PO; +FAMC250T PO; +META0.52 PO; -PROHANCE 279.3MG/ML 5ML VIAL As Ordered ONE; +VITMTA PO
== END ==
LOC: M LABSMTC 11:11
PROVIDERS: ATTEND Anesthesiology
DX: Z01.812 Encounter for preprocedural laboratory examination (principal); Z20.822 Contact with and (suspected) exposure to COVID-19

== ENCOUNTER 2021-02-23 12:51 | Day surgery (SDC) | payer MEDICARE, BC, OTHER ==
[~2021-02-23] VITALS: Ht 180.3 cm; Wt 101.5 kg
[~2021-02-23 12:51] MED LIST changes: +NS 1,000 ML IV ONE
[2021-02-23] MEDS ORDERED: LIDOCAINE 2% 100MG/5ML SDV (FOR ANES.) As Ordered ONE (14:58)
[2021-02-23] MEDS ORDERED: GLYCOPYRROLATE INJ 0.2 MG/ML 2 ML VIAL As Ordered ONE (15:08)
[2021-02-23] MEDS ORDERED: propofoL 200 MG/20 ML VIAL As Ordered ONE ×3 (15:08→15:13)
--- NOTE | 2021-02-23 15:34 | ROOR ---
Patient Name: Barney Bob Procedure Date: 02/23/2021 2:57 PM Date of : 1945 Age: 75 Room: [facility] Gender: Male Note Status: Finalized Procedure: Upper GI endoscopy Indications: Dyspepsia, Suspected esophageal reflux, Chronic cough Providers: Isaiah Cool MD Referring MD: John Abebe MD Requesting Provider: Medicines: Monitored Anesthesia Care Complications: No immediate complications. Procedure: Pre-Anesthesia Assessment: - The heart rate, respiratory rate, oxygen saturations, blood pressure, adequacy of pulmonary ventilation, and response to care were monitored throughout the procedure. The Endoscope was introduced through the mouth, and advanced to the second part of duodenum. The upper GI endoscopy was accomplished without difficulty. The patient tolerated the procedure well. Findings: Mildly severe esophagitis with no bleeding was found at the gastroesophageal junction. Biopsies were taken with a cold forceps for histology. Scattered mild inflammation characterized by erythema and granularity was found in the gastric antrum. Biopsies were taken with a cold forceps for histology. Small Hiatal Hernia. A single 8 mm mucosal nodule was found in the second portion of the duodenum. Biopsies were taken with a cold forceps for histology. Impression: - Mild reflux esophagitis. Biopsied. - Mild scattered antral gastritis. Biopsied. - Small Hiatal Hernia. - 8-10 mm mucosal polyp/nodule found in the second portion of the duodenum. Biopsied. Recommendation: - Despite the lack of "heartburn", I suspect your chronic cough may be related to "silent" acid reflux causing reactive airway/vocal chord irritation. - Use Prilosec (omeprazole) 20 mg twice a day for at least 3 months.--Your cough may take several weeks to improve. - (the script was sent to your pharmacy on file) - Telephone endoscopist for pathology results in 2 weeks. - Await pathology on the duodenal polyp/nodule--If this is adenomatous on biopsy, then will need to repeat EGD to remove the polyp. Procedure Code(s): --- Professional --- 47586, Esophagogastroduodenoscopy, flexible, transoral; with biopsy, single or multiple Diagnosis Code(s): --- Professional --- R05, Cough R10.13, Epigastric pain K31.89, Other diseases of stomach and duodenum K29.70, Gastritis, unspecified, without bleeding K21.0, Gastro-esophageal reflux disease with esophagitis CPT copyright 2019 [employer]. All rights reserved. The codes documented in this report are preliminary and upon medical biller/coder review may be revised to meet current compliance requirements. Isaiah Cool MD Isaiah Cool MD 02/23/2021 3:33:49 PM Electronically signed by Isaiah Cool MD Number of Addenda: 0 Note Initiated On: 02/23/2021 2:57 PM Estimated Blood Loss: Estimated blood loss: none.
[2021-02-23 15:50] VITALS: BP 129/61
== END 2021-02-23 15:58 | disposition home or self-care (01) ==
LOC: M OPP 12:51
PROVIDERS: ATTEND Internal Medicine Gastroenterology
DX: K31.89 Other diseases of stomach and duodenum (principal); K29.70 Gastritis, unspecified, without bleeding; K21.00 Gastro-esophageal reflux disease with esophagitis, without bleeding; K44.9 Diaphragmatic hernia without obstruction or gangrene; R05.9 Cough, unspecified; R10.13 Epigastric pain; Z79.82 Long term (current) use of aspirin; Z79.899 Other long term (current) drug therapy; Z88.0 Allergy status to penicillin; Z91.013 Allergy to seafood; Z85.6 Personal history of leukemia; Z92.21 Personal history of antineoplastic chemotherapy

== ENCOUNTER → 2021-06-10 | Outpatient (CLI) | payer MEDICARE, BC, OTHER ==
[~2021-06-10] MED LIST changes: -D31000TA2 PO; +FAMO-142 PO; +FAMO20TA PO; +FLOM0.4C39 PO; -NS 1,000 ML IV ONE; +VIAC1CHW PO; +VITA100093 PO; +XALA0.007 OU
== END ==
LOC: M LABSMTC 10:43
PROVIDERS: ATTEND Anesthesiology
DX: Z01.818 Encounter for other preprocedural examination (principal); Z11.52 Encounter for screening for COVID-19

== ENCOUNTER 2021-06-15 12:00 | Day surgery (SDC) | payer MEDICARE, BC, OTHER ==
[~2021-06-15] VITALS: Ht 188 cm; Wt 95.9 kg
[~2021-06-15 12:00] MED LIST changes: +LIDOCAINE 2% 100MG/5ML SDV (FOR ANES.) As Ordered ONE; +NS 1,000 ML IV ONE; +propofoL 200 MG/20 ML VIAL As Ordered ONE
[2021-06-15 12:59] LABS: HEMOGLOBIN 11.1 g/dl (13.5-17.5); MEAN CORPUSCULAR HEMOGLOBIN 27.9 pg (27.0-33.0); MEAN CORPUSCULAR HGB CONC 31.7 g/dl (32.0-36.5); MEAN CORPUSCULAR VOLUME 87.9 fl (80.0-96.0); RED BLOOD COUNT 3.98 10^6/uL (4.30-6.10); WHITE BLOOD COUNT 4.8 10^3/uL (4.0-10.0)
[2021-06-15 13:06] LABS: INR 1.06; PROTHROMBIN TIME 14.2 SECONDS (12.7-14.5)
[2021-06-15 13:28] LABS: PLATELET COUNT, AUTOMATED 82 10^3/uL (150-450)
[2021-06-15] MEDS ORDERED: propofoL 200 MG/20 ML VIAL As Ordered ONE ×2 (14:46→14:52)
[2021-06-15 15:30] VITALS: BP 141/60
== END 2021-06-15 16:10 | disposition home or self-care (01) ==
LOC: M OPP 12:00
PROVIDERS: ATTEND Internal Medicine Gastroenterology
DX: K31.7 Polyp of stomach and duodenum (principal); R13.10 Dysphagia, unspecified; C91.41 Hairy cell leukemia, in remission; C83.10 Mantle cell lymphoma, unspecified site; Z92.21 Personal history of antineoplastic chemotherapy; Z92.3 Personal history of irradiation; Z79.82 Long term (current) use of aspirin; Z79.899 Other long term (current) drug therapy; Z88.0 Allergy status to penicillin; Z91.018 Allergy to other foods; Z91.048 Other nonmedicinal substance allergy status

== ENCOUNTER → 2021-09-13 | Outpatient (CLI) | payer MEDICARE, BC, OTHER ==
[~2021-09-13] MED LIST changes: -LIDOCAINE 2% 100MG/5ML SDV (FOR ANES.) As Ordered ONE; -NS 1,000 ML IV ONE; -propofoL 200 MG/20 ML VIAL As Ordered ONE
[2021-09-13 11:41] LABS: ALBUMIN 3.2 GM/DL (3.2-5.2); BILIRUBIN,TOTAL 0.3 MG/DL (0.2-1.0); CALCIUM LEVEL 9.4 MG/DL (8.8-10.2); CREATININE FOR GFR 1.61 MG/DL (0.70-1.30); FREE T4 0.98 NG/DL (0.76-1.46); GLOMERULAR FILTRATION RATE 44.5 (>42); POTASSIUM SERUM 4.3 MEQ/L (3.5-5.1); THYROID STIMULATING HORMONE 3.88 uIU/ML (0.358-3.740); TOTAL PROTEIN 6.1 GM/DL (6.4-8.2)
[2021-09-13 11:43] LABS: PTH INTACT 18.1 PG/ML (18.5-88.0); TOTAL 25(OH) VITAMIN D 51.8 NG/ML (30.0-100.0)
[2021-09-14 12:08] LABS: INSULIN LEVEL 3.6 uIU/mL (2.6-24.9)
== END ==
LOC: M PLALAB 08:55
PROVIDERS: ATTEND Family Medicine
DX: R73.01 Impaired fasting glucose (principal); Z12.5 Encounter for screening for malignant neoplasm of prostate; N18.30 Chronic kidney disease, stage 3 unspecified; E78.5 Hyperlipidemia, unspecified; C83.10 Mantle cell lymphoma, unspecified site
CPT/HCPCS: 36415; 80053; 82306; 83036; 83525; 83880; 83970; 84439; 84443; 86618; G0103

== ENCOUNTER → 2021-09-27 | Outpatient (CLI) | payer MEDICARE, BC, OTHER ==
[2021-09-27 13:21] LABS: HEMATOCRIT 27.8 % (42.0-52.0); HEMOGLOBIN 8.5 g/dl (13.5-17.5); MEAN CORPUSCULAR HEMOGLOBIN 28.8 pg (27.0-33.0); MEAN CORPUSCULAR HGB CONC 30.6 g/dl (32.0-36.5); MEAN CORPUSCULAR VOLUME 94.2 fl (80.0-96.0); RED BLOOD COUNT 2.95 10^6/uL (4.30-6.10)
[2021-09-27 14:00] LABS: WHITE BLOOD COUNT 48.9 10^3/uL (4.0-10.0)
[2021-09-27 14:01] LABS: PLATELET COUNT, AUTOMATED 84 10^3/uL (150-450)
[2021-09-27 14:38] LABS: LYMPHOCYTES 20 % (16-44); MONOCYTES 2 % (0-5); NEUTROPHILS 9 % (28-66); PROMYELOCYTES 6 % (0-0)
[2021-09-27 14:41] LABS: ATYPICAL LYMPH 18 % (0-5); BLAST CELLS 45 % (0-0); MICROCYTOSIS 1+; OVALOCYTES 2+
[2021-09-27 14:43] LABS: PLATELET ESTIMATE DECREASED (NORMAL)
[2021-09-27 16:56] LABS: ALBUMIN 3.1 GM/DL (3.2-5.2); BILIRUBIN,TOTAL 0.3 MG/DL (0.2-1.0); CALCIUM LEVEL 8.9 MG/DL (8.8-10.2); CREATININE FOR GFR 1.53 MG/DL (0.70-1.30); GLOMERULAR FILTRATION RATE 47.2 (>42); MAGNESIUM LEVEL 2.3 MG/DL (1.8-2.4); PHOSPHORUS LEVEL 3.7 MG/DL (2.5-4.9); POTASSIUM SERUM 4.4 MEQ/L (3.5-5.1); TOTAL PROTEIN 6.1 GM/DL (6.4-8.2); URIC ACID 5.3 MG/DL (3.5-7.2)
== END ==
LOC: M PLALAB 11:22
DX: C83.10 Mantle cell lymphoma, unspecified site (principal); C91.41 Hairy cell leukemia, in remission; D69.6 Thrombocytopenia, unspecified

== ENCOUNTER → 2021-09-28 | Outpatient (CLI) | payer MEDICARE, BC, OTHER ==
[2021-09-28 10:56] LABS: HEMATOCRIT 27.7 % (42.0-52.0); HEMOGLOBIN 8.5 g/dl (13.5-17.5); MEAN CORPUSCULAR HEMOGLOBIN 28.6 pg (27.0-33.0); MEAN CORPUSCULAR HGB CONC 30.7 g/dl (32.0-36.5); MEAN CORPUSCULAR VOLUME 93.3 fl (80.0-96.0); RED BLOOD COUNT 2.97 10^6/uL (4.30-6.10)
[2021-09-28 11:06] LABS: PLATELET COUNT, AUTOMATED 82 10^3/uL (150-450); WHITE BLOOD COUNT 41.3 10^3/uL (4.0-10.0)
[2021-09-28 11:30] LABS: LYMPHOCYTES 21 % (16-44); MONOCYTES 2 % (0-5); NEUTROPHILS 20 % (28-66); PROMYELOCYTES 18 % (0-0)
[2021-09-28 11:31] LABS: ANISOCYTOSIS 1+; ATYPICAL LYMPH 2 % (0-5); BLAST CELLS 37 % (0-0); PLATELET ESTIMATE DECREASED (NORMAL)
[2021-09-28 12:15] LABS: ALBUMIN 3.2 GM/DL (3.2-5.2); BILIRUBIN,TOTAL 0.3 MG/DL (0.2-1.0); CREATININE FOR GFR 1.81 MG/DL (0.70-1.30); GLOMERULAR FILTRATION RATE 38.9 (>42); MAGNESIUM LEVEL 2.4 MG/DL (1.8-2.4); PHOSPHORUS LEVEL 3.6 MG/DL (2.5-4.9); POTASSIUM SERUM 4.4 MEQ/L (3.5-5.1); TOTAL PROTEIN 6.1 GM/DL (6.4-8.2); URIC ACID 5.6 MG/DL (3.5-7.2)
== END ==
LOC: M PLALAB 07:40
PROVIDERS: ATTEND Internal Medicine Hematology & Oncology
DX: C83.10 Mantle cell lymphoma, unspecified site (principal)

== ENCOUNTER → 2021-09-30 | Outpatient (CLI) | payer MEDICARE, BC, OTHER ==
[2021-09-30 10:53] LABS: HEMATOCRIT 27.3 % (42.0-52.0); HEMOGLOBIN 8.3 g/dl (13.5-17.5); MEAN CORPUSCULAR HEMOGLOBIN 28.5 pg (27.0-33.0); MEAN CORPUSCULAR HGB CONC 30.4 g/dl (32.0-36.5); MEAN CORPUSCULAR VOLUME 93.8 fl (80.0-96.0); RED BLOOD COUNT 2.91 10^6/uL (4.30-6.10)
[2021-09-30 10:54] LABS: PLATELET COUNT, AUTOMATED 68 10^3/uL (150-450); WHITE BLOOD COUNT 33.9 10^3/uL (4.0-10.0)
[2021-09-30 11:09] LABS: ALBUMIN 3.2 GM/DL (3.2-5.2); BILIRUBIN,TOTAL 0.4 MG/DL (0.2-1.0); CALCIUM LEVEL 8.7 MG/DL (8.8-10.2); CREATININE FOR GFR 1.55 MG/DL (0.70-1.30); GLOMERULAR FILTRATION RATE 46.5 (>42); MAGNESIUM LEVEL 2.3 MG/DL (1.8-2.4); PHOSPHORUS LEVEL 2.9 MG/DL (2.5-4.9); POTASSIUM SERUM 4.8 MEQ/L (3.5-5.1); URIC ACID 5.5 MG/DL (3.5-7.2)
[2021-09-30 11:34] LABS: LYMPHOCYTES 18 % (16-44); MONOCYTES 8 % (0-5); NEUTROPHILS 17 % (28-66)
[2021-09-30 11:43] LABS: ATYPICAL LYMPH 16 % (0-5); BLAST CELLS 41 % (0-0); PLATELET ESTIMATE DECREASED (NORMAL)
[2021-09-30 11:44] LABS: MICROCYTOSIS 1+
[2021-09-30 11:45] LABS: OVALOCYTES 2+
== END ==
LOC: M PLALAB 07:41
PROVIDERS: ATTEND Internal Medicine Hematology & Oncology
DX: C83.10 Mantle cell lymphoma, unspecified site (principal); C91.41 Hairy cell leukemia, in remission; D69.6 Thrombocytopenia, unspecified

== ENCOUNTER → 2021-10-04 | Outpatient (CLI) | payer MEDICARE, BC, OTHER ==
[2021-10-04 10:26] LABS: HEMATOCRIT 25.6 % (42.0-52.0); HEMOGLOBIN 7.9 g/dl (13.5-17.5); MEAN CORPUSCULAR HEMOGLOBIN 29.3 pg (27.0-33.0); MEAN CORPUSCULAR HGB CONC 30.9 g/dl (32.0-36.5); MEAN CORPUSCULAR VOLUME 94.8 fl (80.0-96.0); WHITE BLOOD COUNT 28.8 10^3/uL (4.0-10.0)
[2021-10-04 10:27] LABS: PLATELET COUNT, AUTOMATED 58 10^3/uL (150-450)
[2021-10-04 11:00] LABS: ALBUMIN 3.3 GM/DL (3.2-5.2); BILIRUBIN,TOTAL 0.4 MG/DL (0.2-1.0); CALCIUM LEVEL 8.4 MG/DL (8.8-10.2); CREATININE FOR GFR 1.51 MG/DL (0.70-1.30); GLOMERULAR FILTRATION RATE 47.9 (>42); PHOSPHORUS LEVEL 3.1 MG/DL (2.5-4.9); POTASSIUM SERUM 4.5 MEQ/L (3.5-5.1); TOTAL PROTEIN 6.1 GM/DL (6.4-8.2); URIC ACID 5.1 MG/DL (3.5-7.2)
[2021-10-04 11:05] LABS: ANISOCYTOSIS 1+; ATYPICAL LYMPH 12 % (0-5); BASOPHILS 1 % (0-1); BLAST CELLS 39 % (0-0); LYMPHOCYTES 19 % (16-44); MONOCYTES 9 % (0-5); NEUTROPHILS 20 % (28-66); OVALOCYTES 1+; PLATELET ESTIMATE DECREASED (NORMAL)
== END ==
LOC: M PLALAB 07:24
PROVIDERS: ATTEND Internal Medicine Hematology & Oncology
DX: C83.10 Mantle cell lymphoma, unspecified site (principal); C91.41 Hairy cell leukemia, in remission; D69.6 Thrombocytopenia, unspecified

== ENCOUNTER → 2021-10-05 | Outpatient (CLI) | payer MEDICARE, BC, OTHER ==
[2021-10-05 10:28] LABS: HEMOGLOBIN 8.6 g/dl (13.5-17.5); MEAN CORPUSCULAR HEMOGLOBIN 29.7 pg (27.0-33.0); MEAN CORPUSCULAR HGB CONC 31.9 g/dl (32.0-36.5); MEAN CORPUSCULAR VOLUME 93.1 fl (80.0-96.0); PLATELET COUNT, AUTOMATED 59 10^3/uL (150-450); WHITE BLOOD COUNT 24.5 10^3/uL (4.0-10.0)
[2021-10-05 10:41] LABS: ALBUMIN 3.2 GM/DL (3.2-5.2); BILIRUBIN,TOTAL 0.3 MG/DL (0.2-1.0); CALCIUM LEVEL 8.4 MG/DL (8.8-10.2); CREATININE FOR GFR 1.61 MG/DL (0.70-1.30); GLOMERULAR FILTRATION RATE 44.5 (>42); MAGNESIUM LEVEL 2.2 MG/DL (1.8-2.4); PHOSPHORUS LEVEL 3.6 MG/DL (2.5-4.9); POTASSIUM SERUM 4.6 MEQ/L (3.5-5.1); TOTAL PROTEIN 6.2 GM/DL (6.4-8.2); URIC ACID 5.2 MG/DL (3.5-7.2)
[2021-10-05 11:50] LABS: ATYPICAL LYMPH 8 % (0-5); BLAST CELLS 38 % (0-0); LYMPHOCYTES 16 % (16-44); MONOCYTES 10 % (0-5); NEUTROPHILS 28 % (28-66)
[2021-10-05 11:51] LABS: ANISOCYTOSIS 1+; PLATELET ESTIMATE DECREASED (NORMAL)
== END ==
LOC: M PLALAB 07:24
PROVIDERS: ATTEND Internal Medicine Hematology & Oncology
DX: C83.10 Mantle cell lymphoma, unspecified site (principal); C81.41 Lymphocyte-rich Hodgkin lymphoma, lymph nodes of head, face, and neck; D69.6 Thrombocytopenia, unspecified

== ENCOUNTER → 2021-10-11 | Outpatient (CLI) | payer MEDICARE, BC, OTHER ==
[2021-10-11 17:59] LABS: HEMOGLOBIN 7.6 g/dl (13.5-17.5); MEAN CORPUSCULAR HGB CONC 30.4 g/dl (32.0-36.5); MEAN CORPUSCULAR VOLUME 95.4 fl (80.0-96.0); RED BLOOD COUNT 2.62 10^6/uL (4.30-6.10); WHITE BLOOD COUNT 18.9 10^3/uL (4.0-10.0)
[2021-10-11 18:07] LABS: PLATELET COUNT, AUTOMATED 69 10^3/uL (150-450)
[2021-10-11 19:15] LABS: BILIRUBIN,TOTAL 0.2 MG/DL (0.2-1.0); CALCIUM LEVEL 8.3 MG/DL (8.8-10.2); CREATININE FOR GFR 1.44 MG/DL (0.70-1.30); GLOMERULAR FILTRATION RATE 50.6 (>42); PHOSPHORUS LEVEL 3.1 MG/DL (2.5-4.9); POTASSIUM SERUM 4.4 MEQ/L (3.5-5.1); TOTAL PROTEIN 5.6 GM/DL (6.4-8.2); URIC ACID 4.8 MG/DL (3.5-7.2)
[2021-10-12 10:50] LABS: ANISOCYTOSIS 1+; ATYPICAL LYMPH 37 % (0-5); BASOPHILS 1 % (0-1); BLAST CELLS 4 % (0-0); EOSINOPHILS 2 % (0-3); MONOCYTES 2 % (0-5); NEUTROPHILS 26 % (28-66); PLATELET ESTIMATE DECREASED (NORMAL)
[2021-10-12 10:51] LABS: OVALOCYTES 1+
[2021-10-12 11:21] LABS: LYMPHOCYTES 28 % (16-44)
== END ==
LOC: M PLALAB 14:35
PROVIDERS: ATTEND Physician Assistant
DX: C83.10 Mantle cell lymphoma, unspecified site (principal); C91.41 Hairy cell leukemia, in remission; D69.6 Thrombocytopenia, unspecified

== ENCOUNTER → 2021-10-11 | Outpatient (CLI) | payer MEDICARE, BC, OTHER ==
[2021-10-11 10:30] LABS: HEMATOCRIT 26.3 % (42.0-52.0); HEMOGLOBIN 8.1 g/dl (13.5-17.5); MEAN CORPUSCULAR HEMOGLOBIN 29.5 pg (27.0-33.0); MEAN CORPUSCULAR HGB CONC 30.8 g/dl (32.0-36.5); MEAN CORPUSCULAR VOLUME 95.6 fl (80.0-96.0); RED BLOOD COUNT 2.75 10^6/uL (4.30-6.10); WHITE BLOOD COUNT 16.5 10^3/uL (4.0-10.0)
[2021-10-11 10:31] LABS: PLATELET COUNT, AUTOMATED 67 10^3/uL (150-450)
[2021-10-11 10:43] LABS: ALBUMIN 3.3 GM/DL (3.2-5.2); BILIRUBIN,TOTAL 0.3 MG/DL (0.2-1.0); CALCIUM LEVEL 8.8 MG/DL (8.8-10.2); CREATININE FOR GFR 1.46 MG/DL (0.70-1.30); GLOMERULAR FILTRATION RATE 49.8 (>42); MAGNESIUM LEVEL 2.1 MG/DL (1.8-2.4); PHOSPHORUS LEVEL 3.2 MG/DL (2.5-4.9); POTASSIUM SERUM 4.4 MEQ/L (3.5-5.1); TOTAL PROTEIN 6.1 GM/DL (6.4-8.2); URIC ACID 5.1 MG/DL (3.5-7.2)
[2021-10-11 11:02] LABS: BASOPHILS 2 % (0-1); LYMPHOCYTES 19 % (16-44); MONOCYTES 5 % (0-5); NEUTROPHILS 28 % (28-66)
[2021-10-11 11:03] LABS: ATYPICAL LYMPH 15 % (0-5); BLAST CELLS 31 % (0-0); PLATELET ESTIMATE DECREASED (NORMAL)
[2021-10-11 11:04] LABS: MICROCYTOSIS 1+; OVALOCYTES 2+
== END ==
LOC: M PLALAB 07:11
PROVIDERS: ATTEND Internal Medicine Hematology & Oncology
DX: C83.10 Mantle cell lymphoma, unspecified site (principal); C91.41 Hairy cell leukemia, in remission; D69.6 Thrombocytopenia, unspecified

== ENCOUNTER → 2021-10-12 | Outpatient (CLI) | payer MEDICARE, BC, OTHER ==
[2021-10-12 11:01] LABS: HEMATOCRIT 26.1 % (42.0-52.0); MEAN CORPUSCULAR HGB CONC 30.7 g/dl (32.0-36.5); MEAN CORPUSCULAR VOLUME 94.6 fl (80.0-96.0); RED BLOOD COUNT 2.76 10^6/uL (4.30-6.10); WHITE BLOOD COUNT 13.3 10^3/uL (4.0-10.0)
[2021-10-12 11:04] LABS: PLATELET COUNT, AUTOMATED 68 10^3/uL (150-450)
[2021-10-12 11:17] LABS: ALBUMIN 3.1 GM/DL (3.2-5.2); BILIRUBIN,TOTAL 0.3 MG/DL (0.2-1.0); CREATININE FOR GFR 1.45 MG/DL (0.70-1.30); GLOMERULAR FILTRATION RATE 50.2 (>42); MAGNESIUM LEVEL 2.2 MG/DL (1.8-2.4); PHOSPHORUS LEVEL 4.8 MG/DL (2.5-4.9); POTASSIUM SERUM 4.9 MEQ/L (3.5-5.1); TOTAL PROTEIN 6.2 GM/DL (6.4-8.2); URIC ACID 5.1 MG/DL (3.5-7.2)
[2021-10-12 11:51] LABS: ANISOCYTOSIS 1+; ATYPICAL LYMPH 29 % (0-5); BASOPHILS 1 % (0-1); BLAST CELLS 3 % (0-0); EOSINOPHILS 1 % (0-3); LYMPHOCYTES 28 % (16-44); MONOCYTES 6 % (0-5); NEUTROPHILS 32 % (28-66); PLATELET ESTIMATE DECREASED (NORMAL)
[2021-10-12 11:58] LABS: MICROCYTOSIS 1+
[2021-10-12 11:59] LABS: OVALOCYTES 1+
== END ==
LOC: M PLALAB 07:07
PROVIDERS: ATTEND Physician Assistant
DX: C83.10 Mantle cell lymphoma, unspecified site (principal); C91.41 Hairy cell leukemia, in remission; D69.6 Thrombocytopenia, unspecified

== ENCOUNTER → 2021-10-18 | Outpatient (CLI) | payer MEDICARE, BC, OTHER ==
[2021-10-18 18:02] LABS: HEMOGLOBIN 7.3 g/dl (13.5-17.5); MEAN CORPUSCULAR HEMOGLOBIN 29.2 pg (27.0-33.0); MEAN CORPUSCULAR HGB CONC 30.4 g/dl (32.0-36.5); WHITE BLOOD COUNT 11.1 10^3/uL (4.0-10.0)
[2021-10-18 18:05] LABS: PLATELET COUNT, AUTOMATED 67 10^3/uL (150-450)
[2021-10-18 18:16] LABS: ALBUMIN 3.3 GM/DL (3.2-5.2); BILIRUBIN,TOTAL 0.3 MG/DL (0.2-1.0); CALCIUM LEVEL 8.8 MG/DL (8.8-10.2); CREATININE FOR GFR 1.63 MG/DL (0.70-1.30); GLOMERULAR FILTRATION RATE 43.9 (>42); MAGNESIUM LEVEL 2.1 MG/DL (1.8-2.4); PHOSPHORUS LEVEL 3.3 MG/DL (2.5-4.9); POTASSIUM SERUM 4.3 MEQ/L (3.5-5.1); TOTAL PROTEIN 5.9 GM/DL (6.4-8.2); URIC ACID 5.3 MG/DL (3.5-7.2)
[2021-10-18 19:53] LABS: BASOPHILS 2 % (0-1); LYMPHOCYTES 30 % (16-44); METAMYELOCYTES 1 % (0-0); MONOCYTES 3 % (0-5); NEUTROPHILS 39 % (28-66)
[2021-10-18 20:46] LABS: BLAST CELLS 17 % (0-0)
[2021-10-18 20:47] LABS: ANISOCYTOSIS 1+; PLATELET ESTIMATE MARKED DECREASE (NORMAL); POIKILOCYTOSIS 1+
== END ==
LOC: M PLALAB 16:07
PROVIDERS: ATTEND Physician Assistant
DX: C83.10 Mantle cell lymphoma, unspecified site (principal)

== ENCOUNTER → 2021-10-18 | Outpatient (CLI) | payer MEDICARE, BC, OTHER ==
[2021-10-18 11:25] LABS: HEMATOCRIT 25.2 % (42.0-52.0); HEMOGLOBIN 7.6 g/dl (13.5-17.5); MEAN CORPUSCULAR HGB CONC 30.2 g/dl (32.0-36.5); MEAN CORPUSCULAR VOLUME 96.2 fl (80.0-96.0); RED BLOOD COUNT 2.62 10^6/uL (4.30-6.10); WHITE BLOOD COUNT 9.5 10^3/uL (4.0-10.0)
[2021-10-18 11:31] LABS: PLATELET COUNT, AUTOMATED 73 10^3/uL (150-450)
[2021-10-18 11:44] LABS: ALBUMIN 3.3 GM/DL (3.2-5.2); BILIRUBIN,TOTAL 0.4 MG/DL (0.2-1.0); CREATININE FOR GFR 1.58 MG/DL (0.70-1.30); GLOMERULAR FILTRATION RATE 45.5 (>42); MAGNESIUM LEVEL 2.7 MG/DL (1.8-2.4); PHOSPHORUS LEVEL 3.4 MG/DL (2.5-4.9); POTASSIUM SERUM 4.9 MEQ/L (3.5-5.1); URIC ACID 5.5 MG/DL (3.5-7.2)
[2021-10-18 12:32] LABS: ANISOCYTOSIS 2+; ATYPICAL LYMPH 29 % (0-5); LYMPHOCYTES 33 % (16-44); MONOCYTES 1 % (0-5); NEUTROPHILS 37 % (28-66); PLATELET ESTIMATE DECREASED (NORMAL)
[2021-10-18 12:33] LABS: SPHEROCYTES 1+; TOXIC VACUOLATION 2+
[2021-10-18 12:34] LABS: HYPOCHROMASIA 1+
== END ==
LOC: M PLALAB 06:52
PROVIDERS: ATTEND Internal Medicine Hematology & Oncology
DX: C83.10 Mantle cell lymphoma, unspecified site (principal); C91.41 Hairy cell leukemia, in remission; D69.6 Thrombocytopenia, unspecified

== ENCOUNTER → 2021-10-19 | Outpatient (CLI) | payer MEDICARE, BC, OTHER ==
[2021-10-19 10:12] LABS: HEMATOCRIT 25.6 % (42.0-52.0); HEMOGLOBIN 7.7 g/dl (13.5-17.5); MEAN CORPUSCULAR HEMOGLOBIN 28.9 pg (27.0-33.0); MEAN CORPUSCULAR HGB CONC 30.1 g/dl (32.0-36.5); MEAN CORPUSCULAR VOLUME 96.2 fl (80.0-96.0); RED BLOOD COUNT 2.66 10^6/uL (4.30-6.10); WHITE BLOOD COUNT 8.9 10^3/uL (4.0-10.0)
[2021-10-19 10:22] LABS: PLATELET COUNT, AUTOMATED 66 10^3/uL (150-450)
[2021-10-19 10:41] LABS: LYMPHOCYTES 28 % (16-44); NEUTROPHILS 54 % (28-66)
[2021-10-19 10:48] LABS: ATYPICAL LYMPH 12 % (0-5); BLAST CELLS 5 % (0-0)
[2021-10-19 10:49] LABS: HYPOCHROMASIA 2+; PLATELET ESTIMATE MARKED DECREASE (NORMAL)
[2021-10-19 11:19] LABS: ALBUMIN 3.2 GM/DL (3.2-5.2); BILIRUBIN,TOTAL 0.3 MG/DL (0.2-1.0); CALCIUM LEVEL 8.7 MG/DL (8.8-10.2); CREATININE FOR GFR 1.54 MG/DL (0.70-1.30); GLOMERULAR FILTRATION RATE 46.9 (>42); MAGNESIUM LEVEL 2.4 MG/DL (1.8-2.4); PHOSPHORUS LEVEL 4.5 MG/DL (2.5-4.9); POTASSIUM SERUM 4.9 MEQ/L (3.5-5.1); TOTAL PROTEIN 6.1 GM/DL (6.4-8.2); URIC ACID 5.8 MG/DL (3.5-7.2)
== END ==
LOC: M PLALAB 06:50
PROVIDERS: ATTEND Internal Medicine Hematology & Oncology
DX: C83.10 Mantle cell lymphoma, unspecified site (principal); C91.41 Hairy cell leukemia, in remission; D69.6 Thrombocytopenia, unspecified

== ENCOUNTER → 2021-10-25 | Outpatient (CLI) | payer MEDICARE, BC, OTHER ==
[2021-10-25 10:36] LABS: HEMATOCRIT 25.1 % (42.0-52.0); HEMOGLOBIN 7.5 g/dl (13.5-17.5); MEAN CORPUSCULAR HEMOGLOBIN 29.2 pg (27.0-33.0); MEAN CORPUSCULAR HGB CONC 29.9 g/dl (32.0-36.5); MEAN CORPUSCULAR VOLUME 97.7 fl (80.0-96.0); RED BLOOD COUNT 2.57 10^6/uL (4.30-6.10); WHITE BLOOD COUNT 5.2 10^3/uL (4.0-10.0)
[2021-10-25 10:37] LABS: PLATELET COUNT, AUTOMATED 58 10^3/uL (150-450)
[2021-10-25 11:07] LABS: ATYPICAL LYMPH 12 % (0-5); BASOPHILS 1 % (0-1); BLAST CELLS 1 % (0-0); LYMPHOCYTES 24 % (16-44); METAMYELOCYTES 1 % (0-0); MONOCYTES 2 % (0-5); NEUTROPHILS 59 % (28-66); PLATELET ESTIMATE MARKED DECREASE (NORMAL)
[2021-10-25 11:08] LABS: ANISOCYTOSIS 1+; HYPOCHROMASIA 2+
[2021-10-25 11:29] LABS: ALBUMIN 3.1 GM/DL (3.2-5.2); BILIRUBIN,TOTAL 0.5 MG/DL (0.2-1.0); CALCIUM LEVEL 8.6 MG/DL (8.8-10.2); CREATININE FOR GFR 1.43 MG/DL (0.70-1.30); MAGNESIUM LEVEL 2.1 MG/DL (1.8-2.4); PHOSPHORUS LEVEL 3.4 MG/DL (2.5-4.9); POTASSIUM SERUM 4.2 MEQ/L (3.5-5.1); TOTAL PROTEIN 5.7 GM/DL (6.4-8.2); URIC ACID 7.7 MG/DL (3.5-7.2)
== END ==
LOC: M PLALAB 06:46
PROVIDERS: ATTEND Physician Assistant
DX: C83.10 Mantle cell lymphoma, unspecified site (principal); C91.41 Hairy cell leukemia, in remission; D69.6 Thrombocytopenia, unspecified

== ENCOUNTER → 2021-10-26 | Outpatient (CLI) | payer MEDICARE, BC, OTHER ==
[2021-10-26 10:30] LABS: HEMATOCRIT 25.7 % (42.0-52.0); HEMOGLOBIN 7.8 g/dl (13.5-17.5); MEAN CORPUSCULAR HGB CONC 30.4 g/dl (32.0-36.5); MEAN CORPUSCULAR VOLUME 95.5 fl (80.0-96.0); RED BLOOD COUNT 2.69 10^6/uL (4.30-6.10); WHITE BLOOD COUNT 5.8 10^3/uL (4.0-10.0)
[2021-10-26 10:31] LABS: PLATELET COUNT, AUTOMATED 64 10^3/uL (150-450)
[2021-10-26 10:41] LABS: ALBUMIN 3.2 GM/DL (3.2-5.2); BILIRUBIN,TOTAL 0.4 MG/DL (0.2-1.0); CALCIUM LEVEL 8.9 MG/DL (8.8-10.2); CREATININE FOR GFR 1.58 MG/DL (0.70-1.30); GLOMERULAR FILTRATION RATE 45.5 (>42); PHOSPHORUS LEVEL 3.7 MG/DL (2.5-4.9); POTASSIUM SERUM 4.6 MEQ/L (3.5-5.1); URIC ACID 7.6 MG/DL (3.5-7.2)
[2021-10-26 10:56] LABS: ATYPICAL LYMPH 2 % (0-5); BASOPHILS 1 % (0-1); LYMPHOCYTES 32 % (16-44); METAMYELOCYTES 1 % (0-0); NEUTROPHILS 64 % (28-66); PLATELET ESTIMATE DECREASED (NORMAL)
== END ==
LOC: M PLALAB 06:43
PROVIDERS: ATTEND Internal Medicine Hematology & Oncology
DX: C83.10 Mantle cell lymphoma, unspecified site (principal); C91.41 Hairy cell leukemia, in remission; D69.6 Thrombocytopenia, unspecified

== ENCOUNTER → 2021-11-01 | Outpatient (CLI) | payer MEDICARE, BC, OTHER ==
[2021-11-01 11:14] LABS: HEMOGLOBIN 7.9 g/dl (13.5-17.5); MEAN CORPUSCULAR HEMOGLOBIN 29.7 pg (27.0-33.0); MEAN CORPUSCULAR HGB CONC 30.4 g/dl (32.0-36.5); MEAN CORPUSCULAR VOLUME 97.7 fl (80.0-96.0); RED BLOOD COUNT 2.66 10^6/uL (4.30-6.10); WHITE BLOOD COUNT 4.9 10^3/uL (4.0-10.0)
[2021-11-01 11:26] LABS: PLATELET COUNT, AUTOMATED 75 10^3/uL (150-450)
[2021-11-01 11:53] LABS: CALCIUM LEVEL 8.8 MG/DL (8.8-10.2); CREATININE FOR GFR 1.35 MG/DL (0.70-1.30); GLOMERULAR FILTRATION RATE 54.6 (>42); PHOSPHORUS LEVEL 3.2 MG/DL (2.5-4.9); POTASSIUM SERUM 4.3 MEQ/L (3.5-5.1)
[2021-11-01 11:54] LABS: ALBUMIN 3.1 GM/DL (3.2-5.2); BILIRUBIN,TOTAL 0.3 MG/DL (0.2-1.0); MAGNESIUM LEVEL 1.9 MG/DL (1.8-2.4); TOTAL PROTEIN 6.1 GM/DL (6.4-8.2); URIC ACID 6.9 MG/DL (3.5-7.2)
== END ==
LOC: M PLALAB 06:52
PROVIDERS: ATTEND Internal Medicine Hematology & Oncology
DX: C83.10 Mantle cell lymphoma, unspecified site (principal); C91.41 Hairy cell leukemia, in remission; D69.6 Thrombocytopenia, unspecified

== ENCOUNTER → 2021-11-01 | Outpatient (CLI) | payer MEDICARE, BC, OTHER ==
[2021-11-01 17:59] LABS: HEMATOCRIT 25.4 % (42.0-52.0); HEMOGLOBIN 7.4 g/dl (13.5-17.5); MEAN CORPUSCULAR HEMOGLOBIN 28.7 pg (27.0-33.0); MEAN CORPUSCULAR HGB CONC 29.1 g/dl (32.0-36.5); MEAN CORPUSCULAR VOLUME 98.4 fl (80.0-96.0); RED BLOOD COUNT 2.58 10^6/uL (4.30-6.10); WHITE BLOOD COUNT 5.9 10^3/uL (4.0-10.0)
[2021-11-01 18:00] LABS: PLATELET COUNT, AUTOMATED 78 10^3/uL (150-450)
[2021-11-01 18:23] LABS: CREATININE FOR GFR 1.38 MG/DL (0.70-1.30)
[2021-11-01 18:24] LABS: BILIRUBIN,TOTAL 0.3 MG/DL (0.2-1.0); CALCIUM LEVEL 8.8 MG/DL (8.8-10.2); GLOMERULAR FILTRATION RATE 53.2 (>42); MAGNESIUM LEVEL 1.8 MG/DL (1.8-2.4); PHOSPHORUS LEVEL 3.6 MG/DL (2.5-4.9); POTASSIUM SERUM 4.2 MEQ/L (3.5-5.1); URIC ACID 6.3 MG/DL (3.5-7.2)
[2021-11-01 20:44] LABS: ANISOCYTOSIS 1+; BASOPHILS 4 % (0-1); BLAST CELLS 4 % (0-0); LYMPHOCYTES 37 % (16-44); METAMYELOCYTES 2 % (0-0); MONOCYTES 2 % (0-5); NEUTROPHILS 49 % (28-66); PLATELET ESTIMATE DECREASED (NORMAL); POIKILOCYTOSIS 1+
== END ==
LOC: M PLALAB 15:34
PROVIDERS: ATTEND Internal Medicine Hematology & Oncology
DX: C83.10 Mantle cell lymphoma, unspecified site (principal); C91.41 Hairy cell leukemia, in remission; D69.6 Thrombocytopenia, unspecified

== ENCOUNTER → 2021-11-02 | Outpatient (CLI) | payer MEDICARE, BC, OTHER ==
[2021-11-02 09:07] LABS: HEMATOCRIT 25.3 % (42.0-52.0); HEMOGLOBIN 7.6 g/dl (13.5-17.5); MEAN CORPUSCULAR HEMOGLOBIN 29.1 pg (27.0-33.0); MEAN CORPUSCULAR VOLUME 96.9 fl (80.0-96.0); RED BLOOD COUNT 2.61 10^6/uL (4.30-6.10); WHITE BLOOD COUNT 4.9 10^3/uL (4.0-10.0)
[2021-11-02 09:12] LABS: PLATELET COUNT, AUTOMATED 78 10^3/uL (150-450)
[2021-11-02 09:41] LABS: BILIRUBIN,TOTAL 0.4 MG/DL (0.2-1.0); CREATININE FOR GFR 1.45 MG/DL (0.70-1.30); GLOMERULAR FILTRATION RATE 50.2 (>42); PHOSPHORUS LEVEL 3.8 MG/DL (2.5-4.9); POTASSIUM SERUM 4.8 MEQ/L (3.5-5.1); URIC ACID 6.7 MG/DL (3.5-7.2)
[2021-11-02 09:57] LABS: ATYPICAL LYMPH 8 % (0-5); BASOPHILS 3 % (0-1); LYMPHOCYTES 27 % (16-44); MONOCYTES 4 % (0-5); NEUTROPHILS 58 % (28-66)
[2021-11-02 09:58] LABS: ANISOCYTOSIS 1+; HYPOCHROMASIA 2+; PLATELET ESTIMATE DECREASED (NORMAL)
== END ==
LOC: M PLALAB 06:41
PROVIDERS: ATTEND Internal Medicine Hematology & Oncology
DX: C83.10 Mantle cell lymphoma, unspecified site (principal); C91.41 Hairy cell leukemia, in remission; D69.6 Thrombocytopenia, unspecified

== ENCOUNTER → 2021-11-08 | Outpatient (CLI) | payer MEDICARE, BC, OTHER ==
[2021-11-08 10:34] LABS: BASO # 0.1 10^3/uL (0.0-0.2); BASO % 1.3 % (0.0-1.0); HEMATOCRIT 26.7 % (42.0-52.0); HEMOGLOBIN 7.8 g/dl (13.5-17.5); LYMPH # 1.2 10^3/uL (1.5-5.0); LYMPH % 25.8 % (24.0-44.0); MEAN CORPUSCULAR HEMOGLOBIN 28.7 pg (27.0-33.0); MEAN CORPUSCULAR HGB CONC 29.2 g/dl (32.0-36.5); MEAN CORPUSCULAR VOLUME 98.2 fl (80.0-96.0); MONO # 0.6 10^3/uL (0.0-0.8); MONO % 14.4 % (2.0-8.0); NEUTROPHILS # 2.6 10^3/uL (1.5-8.5); NEUTROPHILS % 58.3 % (36.0-66.0); RED BLOOD COUNT 2.72 10^6/uL (4.30-6.10); WHITE BLOOD COUNT 4.5 10^3/uL (4.0-10.0)
[2021-11-08 10:43] LABS: PLATELET COUNT, AUTOMATED 96 10^3/uL (150-450)
[2021-11-08 11:14] LABS: ALBUMIN 3.1 GM/DL (3.2-5.2); BILIRUBIN,TOTAL 0.5 MG/DL (0.2-1.0); CALCIUM LEVEL 9.1 MG/DL (8.8-10.2); CREATININE FOR GFR 1.56 MG/DL (0.70-1.30); GLOMERULAR FILTRATION RATE 46.2 (>42); PHOSPHORUS LEVEL 3.2 MG/DL (2.5-4.9); POTASSIUM SERUM 4.4 MEQ/L (3.5-5.1); URIC ACID 6.4 MG/DL (3.5-7.2)
== END ==
LOC: M PLALAB 06:45
PROVIDERS: ATTEND Internal Medicine Hematology & Oncology
DX: C83.10 Mantle cell lymphoma, unspecified site (principal); C91.41 Hairy cell leukemia, in remission; D69.6 Thrombocytopenia, unspecified

== ENCOUNTER → 2021-11-16 | Outpatient (CLI) | payer MEDICARE, BC, OTHER ==
[2021-11-16 10:42] LABS: HEMATOCRIT 26.5 % (42.0-52.0); HEMOGLOBIN 8.1 g/dl (13.5-17.5); MEAN CORPUSCULAR HEMOGLOBIN 30.1 pg (27.0-33.0); MEAN CORPUSCULAR HGB CONC 30.6 g/dl (32.0-36.5); MEAN CORPUSCULAR VOLUME 98.5 fl (80.0-96.0); PLATELET COUNT, AUTOMATED 142 10^3/uL (150-450); RED BLOOD COUNT 2.69 10^6/uL (4.30-6.10); WHITE BLOOD COUNT 4.3 10^3/uL (4.0-10.0)
[2021-11-16 11:01] LABS: BASOPHILS 2 % (0-1); LYMPHOCYTES 24 % (16-44); MONOCYTES 5 % (0-5); NEUTROPHILS 69 % (28-66); PLATELET ESTIMATE NORMAL (NORMAL)
[2021-11-16 11:07] LABS: ALBUMIN 2.9 GM/DL (3.2-5.2); BILIRUBIN,TOTAL 0.4 MG/DL (0.2-1.0); CALCIUM LEVEL 9.4 MG/DL (8.8-10.2); CREATININE FOR GFR 1.89 MG/DL (0.70-1.30); MAGNESIUM LEVEL 2.1 MG/DL (1.8-2.4); PHOSPHORUS LEVEL 3.2 MG/DL (2.5-4.9); POTASSIUM SERUM 5.2 MEQ/L (3.5-5.1); TOTAL PROTEIN 6.3 GM/DL (6.4-8.2); URIC ACID 6.5 MG/DL (3.5-7.2)
== END ==
LOC: M PLALAB 06:43
PROVIDERS: ATTEND Internal Medicine Hematology & Oncology
DX: C83.10 Mantle cell lymphoma, unspecified site (principal); C91.41 Hairy cell leukemia, in remission; D69.6 Thrombocytopenia, unspecified

== ENCOUNTER → 2021-11-23 | Outpatient (CLI) | payer MEDICARE, BC, OTHER ==
[~2021-11-23] MED LIST changes: +EZET-18 PO; -VYTO10TA22 PO
[2021-11-23 11:03] LABS: BASO # 0.1 10^3/uL (0.0-0.2); BASO % 1.1 % (0.0-1.0); HEMATOCRIT 25.3 % (42.0-52.0); HEMOGLOBIN 7.7 g/dl (13.5-17.5); LYMPH % 17.8 % (24.0-44.0); MEAN CORPUSCULAR HEMOGLOBIN 29.7 pg (27.0-33.0); MEAN CORPUSCULAR HGB CONC 30.4 g/dl (32.0-36.5); MEAN CORPUSCULAR VOLUME 97.7 fl (80.0-96.0); MONO # 0.9 10^3/uL (0.0-0.8); MONO % 16.2 % (2.0-8.0); NEUTROPHILS # 3.6 10^3/uL (1.5-8.5); NEUTROPHILS % 64.4 % (36.0-66.0); PLATELET COUNT, AUTOMATED 161 10^3/uL (150-450); RED BLOOD COUNT 2.59 10^6/uL (4.30-6.10); WHITE BLOOD COUNT 5.6 10^3/uL (4.0-10.0)
[2021-11-23 11:43] LABS: ALBUMIN 2.9 GM/DL (3.2-5.2); BILIRUBIN,TOTAL 0.4 MG/DL (0.2-1.0); CALCIUM LEVEL 9.6 MG/DL (8.8-10.2); CREATININE FOR GFR 1.64 MG/DL (0.70-1.30); GLOMERULAR FILTRATION RATE 43.6 (>42); PHOSPHORUS LEVEL 2.9 MG/DL (2.5-4.9); POTASSIUM SERUM 4.5 MEQ/L (3.5-5.1); TOTAL PROTEIN 5.9 GM/DL (6.4-8.2); URIC ACID 6.5 MG/DL (3.5-7.2)
== END ==
LOC: M PLALAB 06:58
PROVIDERS: ATTEND Internal Medicine Hematology & Oncology
DX: C83.10 Mantle cell lymphoma, unspecified site (principal); C91.41 Hairy cell leukemia, in remission; D69.6 Thrombocytopenia, unspecified

== ENCOUNTER → 2021-11-30 | Outpatient (CLI) | payer MEDICARE, BC, OTHER ==
[~2021-11-30] MED LIST changes: +ALLO100T PO; +VENC100T PO
[2021-11-30 10:24] LABS: BASO # 0.1 10^3/uL (0.0-0.2); BASO % 0.5 % (0.0-1.0); EOS % 0.4 % (0.0-3.0); HEMATOCRIT 25.5 % (42.0-52.0); HEMOGLOBIN 7.8 g/dl (13.5-17.5); LYMPH % 9.1 % (24.0-44.0); MEAN CORPUSCULAR HGB CONC 30.6 g/dl (32.0-36.5); MEAN CORPUSCULAR VOLUME 98.1 fl (80.0-96.0); MONO # 1.1 10^3/uL (0.0-0.8); MONO % 10.5 % (2.0-8.0); NEUTROPHILS # 8.1 10^3/uL (1.5-8.5); NEUTROPHILS % 77.7 % (36.0-66.0); PLATELET COUNT, AUTOMATED 150 10^3/uL (150-450); WHITE BLOOD COUNT 10.5 10^3/uL (4.0-10.0)
[2021-11-30 11:22] LABS: ALBUMIN 2.9 GM/DL (3.2-5.2); BILIRUBIN,TOTAL 0.5 MG/DL (0.2-1.0); CALCIUM LEVEL 9.7 MG/DL (8.8-10.2); CREATININE FOR GFR 1.77 MG/DL (0.70-1.30); GLOMERULAR FILTRATION RATE 39.9 (>42); MAGNESIUM LEVEL 2.1 MG/DL (1.8-2.4); PHOSPHORUS LEVEL 3.9 MG/DL (2.5-4.9); POTASSIUM SERUM 4.2 MEQ/L (3.5-5.1); TOTAL PROTEIN 6.2 GM/DL (6.4-8.2); URIC ACID 7.7 MG/DL (3.5-7.2)
== END ==
LOC: M PLALAB 06:48
PROVIDERS: ATTEND Internal Medicine Hematology & Oncology
DX: C83.10 Mantle cell lymphoma, unspecified site (principal); C91.41 Hairy cell leukemia, in remission; D69.6 Thrombocytopenia, unspecified

== ENCOUNTER 2021-12-01 09:05 | Emergency (ER) | payer MEDICARE, BC, OTHER ==
[~2021-12-01] VITALS: Ht 172.7 cm; Wt 87.8 kg
[~2021-12-01 09:05] MED LIST changes: -ALLO100T PO; -VENC100T PO
[2021-12-01 10:15] LABS: BASO # 0.1 10^3/uL (0.0-0.2); BASO % 0.5 % (0.0-1.0); HEMATOCRIT 24.2 % (42.0-52.0); HEMOGLOBIN 7.4 g/dl (13.5-17.5); MEAN CORPUSCULAR HGB CONC 30.6 g/dl (32.0-36.5); MONO # 1.1 10^3/uL (0.0-0.8); MONO % 9.9 % (2.0-8.0); NEUTROPHILS # 8.4 10^3/uL (1.5-8.5); NEUTROPHILS % 76.4 % (36.0-66.0); PLATELET COUNT, AUTOMATED 131 10^3/uL (150-450); RED BLOOD COUNT 2.47 10^6/uL (4.30-6.10); WHITE BLOOD COUNT 11.1 10^3/uL (4.0-10.0)
[2021-12-01 10:46] LABS: ALBUMIN 2.8 GM/DL (3.2-5.2); BILIRUBIN,TOTAL 0.5 MG/DL (0.2-1.0); CALCIUM LEVEL 9.6 MG/DL (8.8-10.2); CREATININE FOR GFR 1.64 MG/DL (0.70-1.30); GLOMERULAR FILTRATION RATE 43.6 (>42); POTASSIUM SERUM 4.3 MEQ/L (3.5-5.1)
[2021-12-01 11:52] LABS: RSV AMPLIFICATION NEGATIVE (NEGATIVE)
[2021-12-01 12:45] VITALS: BP 124/57
[2021-12-01 15:57] VITALS: BP 130/85
[2021-12-02] MEDS ORDERED: ALLO100T PO (16:19)
[2021-12-02] MEDS ORDERED: VENC100T PO (16:19)
[2021-12-02] MEDS ORDERED: CALQ100C PO (16:21)
== END 2021-12-01 16:23 | disposition home or self-care (01) ==
LOC: M ED 09:05
DX: R06.02 Shortness of breath (principal); D64.9 Anemia, unspecified; C83.10 Mantle cell lymphoma, unspecified site; C91.41 Hairy cell leukemia, in remission; E78.5 Hyperlipidemia, unspecified; N18.30 Chronic kidney disease, stage 3 unspecified; G47.33 Obstructive sleep apnea (adult) (pediatric); F17.200 Nicotine dependence, unspecified, uncomplicated; Z88.0 Allergy status to penicillin; Z91.018 Allergy to other foods; Z79.899 Other long term (current) drug therapy
CPT/HCPCS: 36415; 36430; 71045; 80053; 85025; 86850; 86900; 86901; 86920; 87040; 87631; 93005; 99285; P9016

== ENCOUNTER → 2021-12-02 | Outpatient (CLI) | payer MEDICARE, BC, OTHER ==
[~2021-12-02] MED LIST changes: +ALLO100T PO; +VENC100T PO
== END ==
LOC: M ONCR 15:09
PROVIDERS: ATTEND General Practice
DX: C83.17 Mantle cell lymphoma, spleen (principal); C91.41 Hairy cell leukemia, in remission; D64.9 Anemia, unspecified; G47.33 Obstructive sleep apnea (adult) (pediatric); H40.9 Unspecified glaucoma; L71.9 Rosacea, unspecified; N18.30 Chronic kidney disease, stage 3 unspecified; N40.0 Benign prostatic hyperplasia without lower urinary tract symptoms; R16.1 Splenomegaly, not elsewhere classified; Z79.899 Other long term (current) drug therapy; Z80.1 Family history of malignant neoplasm of trachea, bronchus and lung; Z80.3 Family history of malignant neoplasm of breast; Z80.8 Family history of malignant neoplasm of other organs or systems; Z87.891 Personal history of nicotine dependence; Z88.0 Allergy status to penicillin; Z91.018 Allergy to other foods; Z91.048 Other nonmedicinal substance allergy status; Z92.21 Personal history of antineoplastic chemotherapy

== ENCOUNTER 2021-12-03 16:02 | Emergency (ER) | payer MEDICARE, BC, OTHER ==
[~2021-12-03] VITALS: Ht 172.7 cm; Wt 86.4 kg
[2021-12-03 18:05] LABS: HEMATOCRIT 26.6 % (42.0-52.0); HEMOGLOBIN 8.3 g/dl (13.5-17.5); MEAN CORPUSCULAR HEMOGLOBIN 29.6 pg (27.0-33.0); MEAN CORPUSCULAR HGB CONC 31.2 g/dl (32.0-36.5); PLATELET COUNT, AUTOMATED 128 10^3/uL (150-450); WHITE BLOOD COUNT 10.6 10^3/uL (4.0-10.0)
[2021-12-03 18:43] LABS: ALBUMIN 2.9 GM/DL (3.2-5.2); BILIRUBIN,TOTAL 0.6 MG/DL (0.2-1.0); CREATININE FOR GFR 1.45 MG/DL (0.70-1.30); GLOMERULAR FILTRATION RATE 50.2 (>42); POTASSIUM SERUM 4.7 MEQ/L (3.5-5.1); TOTAL PROTEIN 6.2 GM/DL (6.4-8.2)
[2021-12-03 19:36] LABS: ATYPICAL LYMPH 2 % (0-5); BASOPHILS 1 % (0-1); BLAST CELLS 1 % (0-0); LYMPHOCYTES 14 % (16-44); METAMYELOCYTES 3 % (0-0); MONOCYTES 11 % (0-5); MYELOCYTES 2 % (0-0); NEUTROPHILS 50 % (28-66)
[2021-12-03 19:37] LABS: ANISOCYTOSIS 2+; PLATELET ESTIMATE DECREASED (NORMAL)
[2021-12-03 22:17] VITALS: BP 122/56
== END 2021-12-03 22:25 | disposition home or self-care (01) ==
LOC: M ED 16:02
DX: R00.0 Tachycardia, unspecified (principal); R06.02 Shortness of breath; D69.6 Thrombocytopenia, unspecified; E78.5 Hyperlipidemia, unspecified; F41.9 Anxiety disorder, unspecified; N40.0 Benign prostatic hyperplasia without lower urinary tract symptoms; Z85.6 Personal history of leukemia; Z85.79 Personal history of other malignant neoplasms of lymphoid, hematopoietic and related tissues; Z79.899 Other long term (current) drug therapy; Z88.0 Allergy status to penicillin; Z91.89 Other specified personal risk factors, not elsewhere classified; Z91.018 Allergy to other foods

== ENCOUNTER → 2021-12-07 | Outpatient (CLI) | payer MEDICARE, BC, OTHER ==
[~2021-12-07] MED LIST changes: +OXYC-517 PO
[2021-12-07 11:08] LABS: HEMATOCRIT 25.6 % (42.0-52.0); HEMOGLOBIN 7.8 g/dl (13.5-17.5); MEAN CORPUSCULAR HEMOGLOBIN 29.4 pg (27.0-33.0); MEAN CORPUSCULAR HGB CONC 30.5 g/dl (32.0-36.5); MEAN CORPUSCULAR VOLUME 96.6 fl (80.0-96.0); RED BLOOD COUNT 2.65 10^6/uL (4.30-6.10); WHITE BLOOD COUNT 9.7 10^3/uL (4.0-10.0)
[2021-12-07 11:37] LABS: ALBUMIN 2.8 GM/DL (3.2-5.2); BILIRUBIN,TOTAL 0.7 MG/DL (0.2-1.0); CREATININE FOR GFR 1.76 MG/DL (0.70-1.30); GLOMERULAR FILTRATION RATE 40.2 (>42); PHOSPHORUS LEVEL 4.5 MG/DL (2.5-4.9); POTASSIUM SERUM 4.7 MEQ/L (3.5-5.1); URIC ACID 7.5 MG/DL (3.5-7.2)
[2021-12-07 12:16] LABS: PLATELET COUNT, AUTOMATED 97 10^3/uL (150-450)
[2021-12-07 12:25] LABS: ANISOCYTOSIS 2+; ATYPICAL LYMPH 2 % (0-5); LYMPHOCYTES 5 % (16-44); METAMYELOCYTES 2 % (0-0); MONOCYTES 8 % (0-5); MYELOCYTES 2 % (0-0); NEUTROPHILS 71 % (28-66); PLATELET ESTIMATE DECREASED (NORMAL)
[2021-12-07 12:26] LABS: OVALOCYTES 1+
[2021-12-07 12:27] LABS: GIANT PLATELETS 1+
[2021-12-07 12:28] LABS: HYPOCHROMASIA 1+; POLYCHROMASIA 1+
== END ==
LOC: M PLALAB 07:03
PROVIDERS: ATTEND Internal Medicine Hematology & Oncology
DX: C83.10 Mantle cell lymphoma, unspecified site (principal); C91.41 Hairy cell leukemia, in remission; D69.6 Thrombocytopenia, unspecified

== ENCOUNTER 2021-12-09 13:55 | Outpatient (RCR) | payer MEDICARE, BC, OTHER ==
[~2021-12-09 13:55] MED LIST changes: -OXYC-517 PO
[2021-12-09] MEDS ORDERED: OXYC-517 PO (15:23)
[2021-12-09 15:29] LABS: BASO # 0.1 10^3/uL (0.0-0.2); BASO % 0.8 % (0.0-1.0); HEMATOCRIT 24.6 % (42.0-52.0); HEMOGLOBIN 7.6 g/dl (13.5-17.5); LYMPH # 0.7 10^3/uL (1.5-5.0); LYMPH % 6.6 % (24.0-44.0); MEAN CORPUSCULAR HEMOGLOBIN 29.7 pg (27.0-33.0); MEAN CORPUSCULAR HGB CONC 30.9 g/dl (32.0-36.5); MEAN CORPUSCULAR VOLUME 96.1 fl (80.0-96.0); MONO # 1.2 10^3/uL (0.0-0.8); MONO % 11.7 % (2.0-8.0); NEUTROPHILS # 7.2 10^3/uL (1.5-8.5); NEUTROPHILS % 68.7 % (36.0-66.0); RED BLOOD COUNT 2.56 10^6/uL (4.30-6.10); WHITE BLOOD COUNT 10.5 10^3/uL (4.0-10.0)
[2021-12-09 15:31] LABS: PLATELET COUNT, AUTOMATED 78 10^3/uL (150-450)
[2021-12-09 16:38] LABS: ALBUMIN 2.7 GM/DL (3.2-5.2); BILIRUBIN,TOTAL 0.7 MG/DL (0.2-1.0); CALCIUM LEVEL 10.7 MG/DL (8.8-10.2); CREATININE FOR GFR 1.75 MG/DL (0.70-1.30); GLOMERULAR FILTRATION RATE 40.4 (>42); POTASSIUM SERUM 4.5 MEQ/L (3.5-5.1); TOTAL PROTEIN 5.9 GM/DL (6.4-8.2); URIC ACID 7.8 MG/DL (3.5-7.2)
== END 2021-12-17 ==
LOC: M ONCR 13:55
PROVIDERS: ATTEND General Practice
DX: C83.17 Mantle cell lymphoma, spleen (principal)